=== PATIENT | male | born 1935 | race Caucasian/White ===

== ENCOUNTER 2020-07-13 13:25 | Emergency (ER) | payer MEDICARE, SELFPAY ==
[2020-07-13 13:33] VITALS: BP 158/72; PULSE 69; RESP 16; TEMP 36.3; O2SAT 94; BMI 27.0
--- NOTE | 2020-07-13 13:50 | CTR_ITS ---
PROCEDURE INFORMATION: Exam: CT Abdomen And Pelvis With Contrast Exam date and time: 07/13/2020 2:42 PM Age: 85 years old Clinical indication: Abdominal pain; Localized; Left lower quadrant (llq); Additional info: Left inguinal hernia, severe pain ? incarcerated TECHNIQUE: Imaging protocol: Computed tomography of the abdomen and pelvis with contrast. Radiation optimization: All CT scans at this facility use at least one of these dose optimization techniques: automated exposure control; mA and/or kV adjustment per patient size (includes targeted exams where dose is matched to clinical indication); or iterative reconstruction. Contrast material: OMNIPAQUE 300; Contrast volume: 95 ml; Contrast route: INTRAVENOUS (IV); COMPARISON: CT abdomen pelvis wo con [id number] 09/09/2016 11:06 AM RADIATION DOSE METRICS: Total DLP (mGy-cm): 1323.69 FINDINGS: Mediastinal space: Large hiatal hernia. Liver: There are multiple cystic lesions with benign features in the liver the larger of which measures 11 mm in the left hepatic lobe. Follow-up is not necessary. Gallbladder and bile ducts: Cholelithiasis. Pancreas: Normal. No ductal dilation. Spleen: Normal. No splenomegaly. Adrenal glands: Normal. No mass. Kidneys and ureters: Bilateral renal cysts have benign features. The larger is in the left kidney and measures 2.6 cm in the transverse dimension. There are several left renal calculi. The left renal pelvis is somewhat full appearing in relation to the right. Stomach and bowel: Colonic constipation is present. There is diverticulosis of the colon without evidence of diverticulitis. Appendix: A normal appendix is identified. Intraperitoneal space: Unremarkable. No free air. No significant fluid collection. Vasculature: There is an infrarenal abdominal aortic aneurysm measuring 2.6 x 2.6 cm in AP/transverse dimensions.Follow-up imaging in 5 years is recommended. There is eccentric plaque in the left common iliac artery with a short segment of severe stenosis measuring 6 mm in the craniocaudad dimension. 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 No evidence for rupture. Lymph nodes: Unremarkable. No enlarged lymph nodes. Urinary bladder: Urinary bladder wall thickening could be due to cystitis or lack of distention. Reproductive: Prostate gland is heterogeneous, enlarged, and indents the base of the bladder. Bones/joints: There are degenerative changes in the visualized spine. Soft tissues: Small fat containing left inguinal hernia. There is no extrusion of bowel. CT/CT abdomen pelvis w con* [id number] IMPRESSION: 1. There are several left renal calculi. The left renal pelvis is somewhat full appearing in relation to the right renal pelvis. 2. Urinary bladder wall thickening could be due to cystitis or lack of distention. 3. 3.Colonic constipation is present. 4. There is a small fat containing left inguinal hernia. There is no extrusion of bowel. 5. Large hiatal hernia. 6. Cholelithiasis. COMMENTS: Consistent with the [employer]'s Incidental Findings Committee white paper (J Am Germaine Radiol 2018): Any incidental renal lesion less than 1 cm or classified as too small to characterize, or any incidental cystic renal lesion characterized as simple-appearing, is likely benign. No follow-up imaging is recommended for these lesions per consensus recommendations based on imaging criteria. Radiation Dose CTDIVOL = (mGy): DLP = 1323.69 (mGy-cm)
--- NOTE | 2020-07-13 14:13 | ED_ITS ---
HPI - Male Genitourinary General: Chief complaint: Urogenital-Male Stated complaint: Severe L side groin pain Time Seen by Provider: 07/13/20 13:39 Source: patient Mode of arrival: ambulatory Limitations: no limitations History of Present Illness: HPI Narrative: Patient is an 85-year-old male who presents to the emergency department with left groin pain. Symptoms started yesterday and he said the pain was very severe. He describes the pain as 10/10 yesterday. Pain eventually resolved but returned today and is about a 5/10 currently. He does not have a history of hernia that he knows of, no history of nephrolithiasis. Pain is radiating from the groin to the suprapubic region. No nausea or vomiting. No abdominal distention. No constipation. Onset (ago): day(s) (1) Duration: constant Location: left inguinal region Radiation: abdomen Severity: severe Quality: burning Relieving factors: none Exacerbating factors: none Associated symptoms: Deny discharge, dysuria, fevers/chills, hematuria, nausea, rash, swelling, urinary incontinence, urinary retention, mass or vomiting Review of Systems General: Reports: 10 or more systems reviewed and unremarkable except in HPI and below GI: Denies: nausea or vomiting : Denies: dysuria, urinary incontinence or hematuria Physical Exam Const: COMMON NORMALS: no acute distress, average body habitus, patient oriented x3, no limitations, healthy appearing, alert and well nourished HENMT: COMMON NORMALS: normocephalic, atraumatic and moist oral mucous membranes HEAD & SCALP: normocephalic and atraumatic Neck/C-Spine: COMMON NORMALS: no meningeal signs and no JVD Resp: COMMON NORMALS: normal respiratory effort, No retractions, No use of accessory muscles, clear to auscultation bilaterally and percussion normal AUSCULTATION: clear to auscultation bilaterally PERCUSSION: percussion normal Cardio: COMMON NORMALS: no JVD, regular rate, regular rhythm, S1 normal heart sound present, S2 normal heart sound present, No gallops present (Cardio), No clicks present (Cardio), No murmurs present (Cardio), No rub (Cardio) and Peripheral pulses 2+ throughout RATE: regular rate RHYTHM: regular rhythm HEART SOUNDS: S1 normal heart sound present and S2 normal heart sound present PERIPHERAL PULSES: Peripheral pulses 2+ throughout GI: COMMON NORMALS: Normal to inspection, nondistended, normoactive bowel sounds present, Soft to palpation, non-tender, No hepatosplenomegaly present, no masses and no bruits PALPATION: Yes Soft to palpation, Yes Tenderness to palpation present (GI) (Markedly tender left inguinal hernia.), Yes No hepatosplenomegaly present and Yes Hernia present indirect inguinal Indirect inguinal hernia laterality: left : COMMON NORMALS: Yes no CVA tenderness BLADDER/KIDNEY EXAM: Yes no CVA tenderness Back/Pelvis: COMMON NORMALS: no CVA tenderness Extremity: COMMON NORMALS: normal to inspection, full ROM, capillary refill normal, no calf tenderness and no pedal edema Neuro: COMMON NORMALS: patient oriented x3 SENSORIUM/ORIENTATION: Yes alert MENINGEAL SIGNS: Yes no meningeal signs Skin: COMMON NORMALS: no rashes or lesions noted, no wounds, turgor normal, no jaundice, no petechiae and no mottling GENERAL SKIN EXAM: no rashes or lesions noted and turgor normal Course Reevaluation(s): Reevaluation #1: Discussed his lab and imaging findings with him as well as my conversation with Dr. Spears. We will discharge him home with a prescription for Augmentin, hydrocodone. He already has tamsulosin at home. He will follow-up with Dr. Spears. Patient voiced understanding and is in agreement with the plan. Time: 16:22 Consultations: Consultation #1: Discussed the patient with Dr. Spears, urologist. Since then no signs of pyelonephritis and no significant hydronephrosis. He should be managed with antibiotics and he will follow up with him in the office. Time: 15:40 Vital Signs: Vital signs: Vital Signs Temperature 97.4 F L 07/13/20 13:33 Pulse Rate 71 07/13/20 16:45 Respiratory Rate 15 07/13/20 16:45 Blood Pressure 147/74 07/13/20 16:45 Pulse Oximetry 90 07/13/20 16:45 MDM - Male MDM Narrative: Medical decision making narrative: 85-year-old male who presented with left groin pain. Examination in the ED was concerning for painful inguinal hernia but imaging shows the inguinal hernia is uncomplicated. He however has a urinary tract infection and left-sided urolithiasis. His pain therefore is most likely from the urolithiasis than the hernia. Also explains why the pain is waxing and waning. He was given a dose of intravenous ceftriaxone in the emergency department as well as intravenous morphine. He is discharged home with a prescription for hydrocodone and Augmentin. He has tamsulosin at home that he takes for his prostate. He will follow-up with the urologist outpatient as no signs of pyelonephritis clinically and on CT scan. He is advised to return for any concerns. Medical Records: Attestation: I reviewed the patient's medical records. Lab Data: Attestation: I reviewed the patient's lab results. Labs: Lab Results 07/13/20 07/13/20 07/13/20 Range/Units 14:04 14:13 14:13 WBC 13.6 H (4.0-10.0) 10^3/ uL RBC 5.36 H (4.1-5.3) 10^6/u L Hgb 16.1 (11.7-16.6) g/dL Hct 49.9 (42.0-52.0) % MCV 93.1 (80-94) fL MCH 30.0 (28.0-34.0) pg MCHC 32.3 (30.0-36.0) g/dL RDW 12.9 (12.1-15.1) % Plt Count 243 (130-400) 10^3/c mm MPV 10.9 H (7.4-10.4) fL Neut % (Auto) 65.0 % Lymph % (Auto) 27.3 % [place] % (Auto) 5.5 % Eos % (Auto) 1.6 % Baso % (Auto) 0.3 % Neut # (Auto) 8.84 H (1.8-7.7) 10^3/u L Lymph # (Auto) 3.7 (0.8-4.8) 10^3/u L [place] # (Auto) 0.8 (0.2-0.9) 10^3/u L Eos # (Auto) 0.2 (0.0-0.8) 10^3/u L Baso # (Auto) 0.0 (0.0-0.1) 10^3/u L Nucleated RBC % (a uto) 0 % Nucleated RBCs # 0.0 /100WBC Sodium 144 (136-145) mmol/L Potassium 4.2 (3.5-5.1) mmol/L Chloride 100 (98-107) mmol/L Carbon Dioxide 34 H (22-29) mmol/L Anion Gap 14.2 (5-19) BUN 15 (8-23) mg/dL Creatinine 0.8 (0.7-1.2) mg/dL GFR Calculation Not Reportable Glucose 115 (65-115) mg/dL Calculated Osmolal ity 300 H (285-295) mOsm/k g Calcium 9.1 (8.5-10.5) mg/dL Total Bilirubin 0.4 (0.15-1.2) mg/dL AST 15 (0-40) U/L ALT 10 (0-41) U/L Alkaline Phosphata se 69 (40-130) IU/L Total Protein 7.2 (6.6-8.7) g/dL Albumin 4.7 (3.5-5.2) g/dL Globulin 2.5 (1.3-4.6) g/dL Urine Color Yellow (Yellow) Urine Appearance Cloudy (CLEAR) Urine pH 5 (5-7) Ur Specific Gravit y 1.020 (1.005-1.030) Urine Protein Neg (Negative) Urine Glucose (UA) Norm (Normal) Urine Ketones Negative (Negative) Urine Blood Trace H (Negative) Urine Nitrate Negative (Negative) Urine Bilirubin Neg (Negative) Urine Urobilinogen 1 H (Negative) mg/dL Ur Leukocyte Jayashree ase 2+ H (Negative) Urine RBC 0-4 H (0-2) /hpf Urine WBC >100 H (0-5) /hpf Ur Squamous Epith Cells Rare (0-5) /hpf Amorphous Sediment Not Reportable Urine Bacteria Trace (NONE) /hpf Urine Mucus Trace /hpf Urine Sperm 1+ /hpf Imaging Data: CT Abd/Pel: Attestation: I personally reviewed and interpreted this imaging study as follows: Radiologist's impression: [address] [id number] Scan ReportSigned Patient: Jae Redd #: [id number]: [id number]#:[id number]/Sex: 85 / MADM Date: 07/13/20Loc: ERRoom/Bed:Attending Dr: Ordering Provider/Ordering MD: Sondra Dugan [place] [facility] [place] of Service: 07/13/20 Procedure(s): CT abdomen pelvis w con* [id number] Accession Number(s): [id number] Report Number: [id number] PROCEDURE INFORMATION: Exam: CT Abdomen And Pelvis With Contrast Exam date and time: 07/13/2020 2:42 PM Age: 85 years old Clinical indication: Abdominal pain; Localized; Left lower quadrant (llq); Additional info: Left inguinal hernia, severe pain ? incarcerated TECHNIQUE: Imaging protocol: Computed tomography of the abdomen and pelvis with contrast. Radiation optimization: All CT scans at this facility use at least one of these dose optimization techniques: automated exposure control; mA and/or kV adjustment per patient size (includes targeted exams where dose is matched to clinical indication); or iterative reconstruction. Contrast material: OMNIPAQUE 300; Contrast volume: 95 ml; Contrast route: INTRAVENOUS (IV); COMPARISON: CT abdomen pelvis wo con [id number] 09/09/2016 11:06 AM RADIATION DOSE METRICS: Total DLP (mGy-cm): 1323.69 FINDINGS: Mediastinal space: Large hiatal hernia. Liver: There are multiple cystic lesions with benign features in the liver the larger of which measures 11 mm in the left hepatic lobe. Follow-up is not necessary. Gallbladder and bile ducts: Cholelithiasis. Pancreas: Normal. No ductal dilation. Spleen: Normal. No splenomegaly. Adrenal glands: Normal. No mass. Kidneys and ureters: Bilateral renal cysts have benign features. The larger is in the left kidney and measures 2.6 cm in the transverse dimension. There are several left renal calculi. The left renal pelvis is somewhat full appearing in relation to the right. Stomach and bowel: Colonic constipation is present. There is diverticulosis of the colon without evidence of diverticulitis. Appendix: A normal appendix is identified. Intraperitoneal space: Unremarkable. No free air. No significant fluid collection. Vasculature: There is an infrarenal abdominal aortic aneurysm measuring 2.6 x 2.6 cm in AP/transverse dimensions.Follow-up imaging in 5 years is recommended. There is eccentric plaque in the left common iliac artery with a short segment of severe stenosis measuring 6 mm in the craniocaudad dimension. 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 No evidence for rupture. Lymph nodes: Unremarkable. No enlarged lymph nodes. Urinary bladder: Urinary bladder wall thickening could be due to cystitis or lack of distention. Reproductive: Prostate gland is heterogeneous, enlarged, and indents the base of the bladder. Bones/joints: There are degenerative changes in the visualized spine. Soft tissues: Small fat containing left inguinal hernia. There is no extrusion of bowel. CT/CT abdomen pelvis w con* [id number] IMPRESSION: 1. There are several left renal calculi. The left renal pelvis is somewhat full appearing in relation to the right renal pelvis. 2. Urinary bladder wall thickening could be due to cystitis or lack of distention. 3. 3.Colonic constipation is present. 4. There is a small fat containing left inguinal hernia. There is no extrusion of bowel. 5. Large hiatal hernia. 6. Cholelithiasis. COMMENTS: Consistent with the [employer]'s Incidental Findings Committee white paper (J Am Germaine Radiol 2018): Any incidental renal lesion less than 1 cm or classified as too small to characterize, or any incidental cystic renal lesion characterized as simple-appearing, is likely benign. No follow-up imaging is recommended for these lesions per consensus recommendations based on imaging criteria. Radiation Dose CTDIVOL = (mGy): DLP = 1323.69 (mGy-cm) Dictated By:Jihan George MDSigned By:Jihan George MDSigned Date/Time:07/13/20 1539DD/ 36 Discharge Plan Discharge Patient Disposition: Home Clinical Impression: Left nephrolithiasis, Left inguinal hernia, Hiatal hernia Urinary tract infection Qualifiers: Urinary tract infection type: acute cystitis Hematuria presence: without hematuria Qualified Code(s): N30.00 - Acute cystitis without hematuria Condition: Stable Prescriptions: New Augmentin 500-125 mg tablet 1 tab PO BID Qty: 14 RF: 0 hydrocodone-acetaminophen 5-325 mg tablet 1 tab PO Q8H PRN (Reason: kidney stones) Qty: 21 RF: 0 Continued aspirin 81 mg Tablet,Delayed Release (Dr/Ec) 81 mg PO PRN RF: 0 Flomax 0.4 mg Capsule 0.4 mg PO QAM RF: 0 Spiriva with HandiHaler 18 mcg Capsule, W/Inhalation Device 1 cap INHALATION DAILY RF: 0 Crestor 1 tab PO QAM RF: 0 Lasix 1 tab PO QAM RF: 0 amlodipine 1 tab PO QAM RF: 0 benazepril 1 tab PO QAM RF: 0 metformin 1 tab PO QAM RF: 0 potassium chloride 1 tab PO QAM RF: 0 Discharge Orders: Discharge ED (Routine); Ordered 07/13/20 Ordered By: Sondra Dugan Referrals: Chelsea Joe MD [Primary Care Provider] - 1-3 days Discharge Diet: Usual diet Discharge Activity: Increase activity as tolerated Patient Instructions: Kidney Stones (ED), Urinary Tract Infection in Men (ED), Inguinal Hernia (ED), How to Strain Your Urine (ED), Opioid Safety Activity Restrictions/Additional Instructions: Return for any new or worsening symptoms. Follow-up with your primary care provider within 3 days. You'll be contacted to schedule an appointment with the urologist soon. Take the antibiotic as prescribed and the pain medicine as needed. Continue your Flomax. Coding Level of Care Code ED Cold Water Machine Operator for Chg Fwd Exam Comprehensive
[2020-07-13 14:16] LABS: Bilirubin Urine Neg (Negative); Blood Urine Trace (Negative); Glucose Urine UA Norm (Normal); Ketones Urine Negative (Negative); Nitrate Urine Negative (Negative); Protein Urine Neg (Negative); Urine Appearance Cloudy (CLEAR); Urine Color Yellow (Yellow); pH Urine 5 (5-7)
[2020-07-13 14:17] LABS: Add Urine Microscopic? YES; Leukocyte Esterase Urine 2+ (Negative); Urobilinogen Urine 1 mg/dL (Negative)
[2020-07-13 14:20] LABS: Basophils % 0.3 %; Eosinophils # 0.2 10^3/uL (0.0-0.8); Eosinophils % 1.6 %; Hematocrit 49.9 % (42.0-52.0); Hemoglobin 16.1 g/dL (11.7-16.6); Lymphocytes # 3.7 10^3/uL (0.8-4.8); Lymphocytes % 27.3 %; Mean Corpuscular HGB Conc 32.3 g/dL (30.0-36.0); Mean Corpuscular Volume 93.1 fL (80-94); Mean Platelet Volume 10.9 fL (7.4-10.4); Monocytes # 0.8 10^3/uL (0.2-0.9); Monocytes % 5.5 %; Neutrophils # 8.84 10^3/uL (1.8-7.7); Nucleated Red Blood Cells % 0 %; Platelet Count 243 10^3/cmm (130-400); Red Blood Count 5.36 10^6/uL (4.1-5.3); Red Cell Distribution Width 12.9 % (12.1-15.1); White Blood Count 13.6 10^3/uL (4.0-10.0)
[2020-07-13 14:21] LABS: RBC Urine 0-4 /hpf (0-2); WBC Urine >100 /hpf (0-5)
[2020-07-13 14:22] LABS: Bacteria Urine TRACE /hpf; Mucus Urine TRACE /hpf; Sperm Urine 1+ /hpf; Squamous Epithelial Cell Urine RARE /hpf (0-5)
[2020-07-13 14:23] LABS: Add Urine Culture? Yes
[2020-07-13 14:37] LABS: Alanine Aminotransferase 10 U/L (0-41); Albumin Level 4.7 g/dL (3.5-5.2); Alkaline Phosphatase 69 IU/L (40-130); Aspartate Amino Transferase 15 U/L (0-40); Blood Urea Nitrogen 15 mg/dL (8-23); Calcium 9.1 mg/dL (8.5-10.5); Carbon Dioxide 34 mmol/L (22-29); Chloride 100 mmol/L (98-107); Globulin 2.5 g/dL (1.3-4.6); Glucose 115 mg/dL (65-115); Osmolality Calculated 300 mOsm/kg (285-295); Sodium 144 mmol/L (136-145); Total Bilirubin 0.4 mg/dL (0.15-1.2); Total Protein 7.2 g/dL (6.6-8.7)
[2020-07-13 14:46] LABS: Anion Gap 14.2 (5-19); Potassium 4.2 mmol/L (3.5-5.1)
--- NOTE | 2020-07-13 14:56 | PC.PHAR ---
pt states he takes care of his own medicaitons-pt states he takes the medications entered but is unsure of the mg-pt states [facility] state [facility] dont mail medication to the pt-called [facility] they are closed-no medications pull up on ext med history
[2020-07-13] MEDS: iohexol 300 mg/mL 100 mL Btl IV (15:02)
[2020-07-13] MEDS: cefTRIAXone 1,000 MG in sodium chloride 0.9% (plus) 50 ML 100 MG IV (15:10)
[2020-07-13] MEDS: ondansetron 2 mg/ML SDV 2 mL 4 MG IVP (16:33)
[2020-07-13] MEDS: morphine 4 mg/mL SDV 1 mL IVP (16:33)
[2020-07-13 16:45] VITALS: BP 147/74; PULSE 71; RESP 15; O2SAT 90
--- NOTE | 2020-07-16 10:51 | DCPLANNER ---
manager talent had message to schedule a follow up appointment for patient with Dr. Spears. manager talent called the office of Dr. Spears, spoke with Sadaf, gave clinic patients information. manager talent was told that patients information would be printed and reviewed. Clinic will call patient with appointment information.
--- NOTE | 2020-07-17 12:55 | DCPLANNER ---
Patient has a follow up appointment scheduled for , July 25, 2020 at 3:[address] Spears. Clinic will call patient with appointment information.
--- NOTE | 2020-09-10 07:45 | DCPLANNER ---
Patient had a follow up appointment scheduled for 07.25.[address] Spears - patient did attend appointment.
== END 2020-07-13 16:46 | disposition home or self-care (01) ==
PROVIDERS: Emergency Provider Family Medicine; PCP Family Medicine
DX: K40.90 Unilateral inguinal hernia, without obstruction or gangrene, not specified as recurrent (principal); N30.00 Acute cystitis without hematuria; N20.0 Calculus of kidney; K44.9 Diaphragmatic hernia without obstruction or gangrene; Z79.82 Long term (current) use of aspirin
CPT/HCPCS: 74177; 80053; 81001; 85025; 87077; 87086; 87186; 96365; 96375; 99284; J0696; J2270; J2405; Q9967

== ENCOUNTER 2020-07-25 14:04 | Outpatient (CLI) | payer MEDICARE, SELFPAY ==
--- NOTE | 2020-07-25 13:30 | XR_ITS ---
WS: [id number] KUB, AP view, 07/25/2020 Clinical Data: UROLITHIASIS Comparison: KUB, 08/27/2014. Findings: There are probably left renal calcifications but details obscured by overlying fecal material and col on gas. The right kidney is also obscured by fecal material. There is air in the small bowel and colo n. No obstruction is seen. No calcifications are seen in the true pelvis. XR/XR KUB [id number] Impression: 1. Left renal calcifications obscured by fecal material and colon gas. 2. Large amount of fecal material throughout the colon.
== END 2020-07-25 14:05 | disposition home or self-care (01) ==
LOC: RAD 14:09
PROVIDERS: PCP Family Medicine; Visit Provider Urology
DX: N20.0 Calculus of kidney
CPT/HCPCS: 74018; 81003

== ENCOUNTER → 2020-08-07 09:21 | Outpatient (BNVA) | payer MEDICARE, SELFPAY | PROVIDERS: PCP Family Medicine; Visit Provider Surgery | DX: R10.32 Left lower quadrant pain (principal); Z20.822 Contact with and (suspected) exposure to COVID-19 | CPT/HCPCS: 87635 ==

== ENCOUNTER 2020-08-14 07:08 | Day surgery (SDC) | payer MEDICARE, SELFPAY ==
[2020-08-13 15:02] VITALS: BMI 24.6
[2020-08-14] VITALS (7 sets, daily range): BP systolic 116–157; BP diastolic 57–71; PULSE 59–94; RESP 16–21; TEMP 36.1–36.2; O2SAT 93–97
[2020-08-14] MEDS: sodium chloride 0.9% 1,000 ML 30 ML IV (07:35)
--- NOTE | 2020-08-14 07:40 | W.PM.OPSUD ---
Surgery/Procedure H&P Update DATE OF PROCEDURE: August 14, 2020 DATE H&P PERFORMED: 08/06/20 H&P UPDATE INFORMATION: I have reviewed H&P completed within last 30 days, I have examined patient prior to procedure and No changes to prior documentation PREOP DIAGNOSIS: Left inguinal hernia PLANNED PROCEDURE: Operation Date: 08/14/20 09:00 Proposed Procedures p Laparoscopic poss open Inguinal Hernia Repair w/possible Mesh [id number] k40.9(Not Applicable) - Scott Blake MD
[2020-08-14 07:59] LABS: Glucose Point of Care 97 mg/dL (70-110)
--- NOTE | 2020-08-14 08:19 | ANES.PREANE2 ---
Pre-Anesthetic Assessment Pre-Anesthetic Assessment: Height/Weight: Height 1.69 m Weight 70.307 kg Temp Pulse Resp BP Pulse Ox 97 F L 59 L 18 138/67 94 08/14/20 07:22 08/14/20 07:22 08/14/20 07:22 08/14/20 07:22 08/14/20 07:22 Preop Diagnosis: Left inguinal hernia Proposed Procedure: Operation Date: 08/14/20 09:00 Proposed Procedures p Laparoscopic poss open Inguinal Hernia Repair w/possible Mesh [id number] k40.9(Not Applicable) - Scott Blake MD Was Beta Elida taken within 24 hours: N/A Was Clonidine taken within 24 hours: N/A Last intake: Intake Last Liquid Date 08/13/20 Last Liquid Time 22:00 Last Solid Date 08/13/20 Last Solid Time 18:00 Social: Social History: Tobacco (quit) and No alcohol Exam: Pre-Anes Outpt Exam: alert, oriented x 3 and regular rate & rhythm Airway: Submandibular: WNL Cervical ROM: WNL MP: 2 Dentition: False Pulmonary: Pulmonary: COPD CV/HEM: CV/HEM: CAD (stents) and HTN Metabolic: Metabolic: DM and Hyperlipidemia Anesthetic Plan: ASA status: 3 Anesthesia: General Risk of > 500 ml blood loss (7ml/kg in children): No PFSH Anesthesia PFSH: Medical History (Updated 08/06/20 @ 11:08 by Scott Blake MD) Diabetes HTN (hypertension) Hypercholesterolemia Myocardial infarct Urolithiasis Surgical History H/O esophagogastroduodenoscopy Status post colonoscopy Family History Father , PROSTATE CANCER Cancer Mother Lung disease Social History Smoking and tobacco status: never smoked Alcohol intake: current Alcohol intake frequency: holidays/special occasions only Marital status: Current occupational status: retired Data Anesthesia Other Labs: Laboratory Results - last 48 hr 08/14/20 07:45 POC Glucose 97 Cardiac Studies: No Data to Display
--- NOTE | 2020-08-14 10:38 | SUR.PHASEI ---
PT TO RECOVERY AWAKES TO VOICE, GOOD RESP NOTED PT SCROTAL SUPPORT AND FLUFFS IN PLACE , SCROTUM IS LARGE POINTED OUT IN BEDSIDE HANDOFF FROM OR NURSE, DRESSING D/I BILAT SCDS ON .
--- NOTE | 2020-08-14 10:45 | SUR.PHASEI ---
PT AWAKE ALERT TAKING ICE CHIPS ,PT DENIES PAIN AND NAUSEA, VSS DRESSING D/I WILL GIVE REPORT TO OPS
[2020-08-14] MEDS: HYDROcodone-acetaminophen 5-325 mg Tablet 1 TAB PO (11:26)
--- NOTE | 2020-08-14 14:35 | ANE.PACU2 ---
Inpatient post-anesthesia follow up: Airway intact: Yes Vital signs: Temperature 97.2 F Pulse Rate 68 Respiratory Rate 18 Blood Pressure 116/62 Pulse Oximetry 95 Oxygen Delivery Me thod Room Air Oxygen Flow Rate 8 Fraction of Inspir ed Oxygen Hydration adequate: Yes Nausea and vomiting: No Pain level: 2 Mental status: Baseline
--- NOTE | 2020-08-14 14:52 | PM.OP ---
Operative Report Date of procedure: August 14, 2020 Pre-op Diagnosis: Symptomatic reducible left inguinal hernia Post-op Diagnosis: Indirect reducible left inguinal hernia Lipoma of the spermatic cord Procedure Done: Laparoscopic total extraperitoneal repair of indirect left inguinal hernia with Surgimax 3D mesh measuring 16 x 10 cm Excision of lipoma of the spermatic cord Pathology: none sent Surgeon: Scott Blake Anesthesia: General Condition: stable Disposition: PACU Procedure: The patient was taken to the operating room. After IV antibiotic was administered, the abdomen was prepped and draped in a sterile manner. Using a 15 blade, a 1.0 cm transverse incision was made infraumbilically on the left side. Subcutaneous tissue was divided using electrocautery and the anterior rectus sheath divided using an 11 blade. The rectus muscle was retracted laterally and the extraperitoneal space identified. A 11 mm port was placed and 12 mm of pneumoperitoneum was created. A 10 mm 30? scope was introduced and the retrorectus space was opened using the camera up to the pubic symphysis and 5 mm ports were placed in the midline, one 2-fingerbreadths above the pubic symphysis and the other midway between these two ports under direct visualization. Blunt dissection was carried out to open up the tissue in the midline and to the pubic symphysis, which was identified. The dissection was then carried laterally where the iliopubic tract was identified. There was no femoral, obturator or direct hernia noted. The inferior epigastric artery was identified and dissection was carried posterior to it and laterally, the space was opened up to the level of the umbilicus superior to the anterior superior iliac spine. I then proceeded to dissect out the spermatic cord and the indirect hernial sac was reduced . There is also a lipoma of the spermatic cord which was excised and reduced into the preperitoneal space. 16 x 10cm Surgimax mesh was rolled and introduced through the 10 mm port and then rolled laterally and apposed well against the abdominal wall to cover the myopectineal orifice completely. 10 Cc of 0.5% Marcaine was infiltrated into the preperitoneal space. The extraperitoneal space was desufflated under direct visualization to ensure no slippage of hernial sac under the mesh. All ports were removed, the anterior rectus fascia at the infraumbilical port closed using figure of eight 0 Vicryl sutures, subcutaneous tissue approximated using 3-0 Vicryl sutures and skin at all three port sites were closed using running subcuticular 4-0 Monocryl sutures and Dermabond. 10 mL of 0.5% Marcaine was infiltrated at the port sites. The patient was stable throughout the procedure.
== END 2020-08-14 11:44 | disposition home or self-care (01) ==
PROVIDERS: PCP Family Medicine; Visit Provider Surgery
PROC: (CPT 49650; principal; 2020-08-14 09:00)
DX: K40.90 Unilateral inguinal hernia, without obstruction or gangrene, not specified as recurrent (principal); D17.6 Benign lipomatous neoplasm of spermatic cord; Z87.891 Personal history of nicotine dependence; J44.9 Chronic obstructive pulmonary disease, unspecified; I25.10 Atherosclerotic heart disease of native coronary artery without angina pectoris; Z95.5 Presence of coronary angioplasty implant and graft; I10 Essential (primary) hypertension; E11.9 Type 2 diabetes mellitus without complications; E78.5 Hyperlipidemia, unspecified; E78.00 Pure hypercholesterolemia, unspecified; I25.2 Old myocardial infarction; Z79.82 Long term (current) use of aspirin; Z79.84 Long term (current) use of oral hypoglycemic drugs
CPT/HCPCS: 49650; 36416; 82962; C1781; J0690; J2405; J2704; J2710; J3010; J3490; J7030

== ENCOUNTER 2020-09-11 20:26 | Emergency (ER) | payer MEDICARE, SELFPAY ==
--- NOTE | 2020-09-11 20:40 | XRR_ITS ---
PROCEDURE INFORMATION: Exam: XR Chest Exam date and time: 09/11/2020 8:40 PM Age: 85 years old Clinical indication: Cough and shortness of breath TECHNIQUE: Imaging protocol: XR of the chest. Views: 1 view. COMPARISON: CR Chest 1 [place] [id number] 09/09/2016 10:02 AM FINDINGS: Lungs: There are multiple calcified pulmonary nodules consistent with prior granulomatous disease. Hazy right basilar opacity which could be secondary to atelectasis or pneumonia. Pleural spaces: Unremarkable. No pleural effusion. No pneumothorax. Heart/Mediastinum: Unremarkable. No cardiomegaly. Bones/joints: Unremarkable. XR/XR chest 1V portable [id number] IMPRESSION: Hazy right basilar opacity which could be secondary to atelectasis or pneumonia.
[2020-09-11 21:23] VITALS: BP 126/69; PULSE 81; RESP 18; TEMP 36.8; O2SAT 90; BMI 24.5
--- NOTE | 2020-09-12 01:15 | W.ED.GENADLT ---
HPI - General Adult General: Chief complaint: General Medical Stated complaint: FEVER, COUGH, WEAKNESS Time Seen by Provider: 09/12/20 00:45 Source: patient Mode of arrival: ambulatory Limitations: no limitations History of Present Illness: HPI narrative: 85-year-old male who is here with caregiver has been having increased weakness along with cough dyspnea low-grade fevers and chills over the last 5 to 7 days. He has been slightly confused as well per family. Patient is able answer my questions here and is in no severe distress but is hypoxic. Patient is 86% on room air. Patient did not receive a Covid vaccine. Denies any chest pain. Associated symptoms: Reports dyspnea; Deny chest pain, headache(s), nausea, rash or vomiting Review of Systems Const: Reports: fever(s) and chills; Denies: body aches or change in appetite Eyes: Denies: blurry vision or eye discomfort ENMT: Denies: throat pain or dental pain Card: Denies: chest pain Resp: Reports: dyspnea and non-productive cough GI: Denies: abdominal pain, nausea, vomiting or diarrhea : Denies: dysuria Musc: Denies: neck pain or back pain Skin/Breast: Denies: rash Neuro: Denies: headache(s) Psych: Denies: depression Faustino/Lymph: Denies: easy bruising All/Imm: Denies: urticaria PFSH ED PFSH: Medical History Diabetes HTN (hypertension) Hypercholesterolemia Myocardial infarct Urolithiasis Surgical History H/O esophagogastroduodenoscopy Status post colonoscopy Status post left inguinal hernia repair (08/14/20) Family History Father , PROSTATE CANCER Cancer Mother Lung disease Social History Alcohol intake: current Alcohol intake frequency: holidays/special occasions only Marital status: Current occupational status: retired Physical Exam Const: COMMON NORMALS: no acute distress, patient oriented x3 and healthy appearing HENMT: COMMON NORMALS: normocephalic and atraumatic HEAD & SCALP: normocephalic and atraumatic Eye: COMMON NORMALS: Equal, round and reactive pupils present and EOMs intact bilaterally PUPIL: Yes Equal, round and reactive pupils present Neck/C-Spine: COMMON NORMALS: full ROM and supple Chest: COMMONS NORMALS: normal inspection of the chest and normal palpation of entire chest wall Resp: COMMON NORMALS: normal respiratory effort, No retractions, No use of accessory muscles and clear to auscultation bilaterally AUSCULTATION: clear to auscultation bilaterally Cardio: COMMON NORMALS: regular rate, regular rhythm and No murmurs present (Cardio) RATE: regular rate RHYTHM: regular rhythm GI: COMMON NORMALS: Normal to inspection, nondistended, normoactive bowel sounds present, Soft to palpation, non-tender and no masses PALPATION: Yes Soft to palpation Extremity: COMMON NORMALS: normal to inspection and full ROM Neuro: COMMON NORMALS: patient oriented x3, moves all extremities and no focal motor deficits Psych: COMMON NORMALS: mental status grossly normal, Normal thought process present and cooperative THOUGHT PROCESS: Normal thought process present Skin: COMMON NORMALS: no rashes or lesions noted and no wounds GENERAL SKIN EXAM: no rashes or lesions noted Course Vital Signs: Vital signs: Vital Signs Temperature 98.2 F 09/11/20 21:23 Pulse Rate 82 09/12/20 02:51 Respiratory Rate 18 09/12/20 02:51 Blood Pressure 127/74 09/12/20 02:51 Pulse Oximetry 95 09/12/20 02:51 MDM - General Adult MDM Narrative: Medical decision making narrative: Patient presents here with Covid pneumonia likely causing his symptoms. He is doing well here on 4 L. I spoke to patient's caregiver and they would like to trial going home first. We will place him on steroids albuterol inhaler and have him set up for home oxygen at 4 L. Informed him to monitor his oxygen level and if he worsens or feels worse to return to the ER. They understand agree to plan. Lab Data: Labs: Lab Results 09/12/20 09/12/20 09/12/20 Range/Units 01:45 01:45 01:50 WBC 6.8 (4.0-10.0) 10^3/ uL RBC 5.25 (4.1-5.3) 10^6/u L Hgb 15.7 (11.7-16.6) g/dL Hct 49.3 (42.0-52.0) % MCV 93.9 (80-94) fL MCH 29.9 (28.0-34.0) pg MCHC 31.8 (30.0-36.0) g/dL RDW 13.3 (12.1-15.1) % Plt Count 120 L (130-400) 10^3/c mm MPV 12.1 H (7.4-10.4) fL Neut % (Auto) 32.5 % Lymph % (Auto) 60.8 % [place] % (Auto) 6.2 % Eos % (Auto) 0.0 % Baso % (Auto) 0.1 % Neut # (Auto) 2.19 (1.8-7.7) 10^3/u L Lymph # (Auto) 4.1 (0.8-4.8) 10^3/u L [place] # (Auto) 0.4 (0.2-0.9) 10^3/u L Eos # (Auto) 0.0 (0.0-0.8) 10^3/u L Baso # (Auto) 0.0 (0.0-0.1) 10^3/u L Nucleated RBC % (a uto) 0 % Nucleated RBCs # 0.0 /100WBC Sodium 139 (136-145) mmol/L Potassium 3.8 (3.5-5.1) mmol/L Chloride 98 (98-107) mmol/L Carbon Dioxide 29 (22-29) mmol/L Anion Gap 15.8 (5-19) BUN 29 H (8-23) mg/dL Creatinine 0.9 (0.7-1.2) mg/dL GFR Calculation Not Reportable Glucose 108 (65-115) mg/dL Calculated Osmolal ity 294 (285-295) mOsm/k g Calcium 8.0 L (8.5-10.5) mg/dL Total Bilirubin 0.6 (0.15-1.2) mg/dL AST 42 H (0-40) U/L ALT 22 (0-41) U/L Alkaline Phosphata se 59 (40-130) IU/L Total Protein 6.3 L (6.6-8.7) g/dL Albumin 3.6 (3.5-5.2) g/dL Globulin 2.7 (1.3-4.6) g/dL SARS-CoV-2 Ag (Rap id) Positive H (Negative) Imaging Data^: CXR: Attestation: I personally reviewed and interpreted this imaging study as follows: My impression: Patchy infiltrates consistent with Covid Discharge Plan Discharge Patient Disposition: Home Clinical Impression: COVID-19 Condition: Stable Prescriptions: New Medrol (Arnoldo) 4 mg tablets,dose pack See Rx Instructions .ROUTE .COMPLEX Qty: 21 RF: 0 No Action rosuvastatin 10 mg tablet 10 mg PO DAILY RF: 0 fexofenadine [Rashmi Allergy] 180 mg tablet 180 mg PO DAILY Qty: 30 RF: 0 amlodipine 10 mg tablet 10 mg PO DAILY Qty: 90 RF: 2 Flomax 0.4 mg capsule 0.4 mg PO QAM Qty: 90 RF: 1 benazepril 20 mg tablet 20 mg PO DAILY Qty: 90 RF: 1 metformin 500 mg tablet 500 mg PO DAILY Qty: 90 RF: 1 furosemide [Lasix] 40 mg tablet 40 mg PO DAILY Qty: 90 RF: 1 Spiriva with HandiHaler 18 mcg capsule, w/inhalation device 1 cap INHALATION DAILY Qty: 90 RF: 1 potassium chloride 10 mEq capsule, extended release 10 meq PO DAILY Qty: 90 RF: 1 aspirin 81 mg Tablet,Delayed Release (Dr/Ec) 81 mg PO PRN RF: 0 Zofran 4 mg tablet 4 mg PO Q6H PRN (Reason: nausea and vomiting) Qty: 20 RF: 0 Colace 100 mg capsule 100 mg PO BID Qty: 30 RF: 0 hydrocodone-acetaminophen 5-325 mg tablet 1 tab PO Q6H PRN (Reason: pain) Qty: 20 RF: 0 Discharge Orders: Discharge ED (Routine); Ordered 09/12/20 Ordered By: Marino Stewart Other Ambulatory Orders: DME: Oxygen (Order) Location: None Selected Ordered By: Marino Stewart Referrals: Chelsea Joe MD [Primary Care Provider] - 1-3 days Discharge Diet: Advance as tolerated Discharge Activity: Resume usual activity Patient Instructions: Viral Syndrome (ED) Coding Level of Care Code ED Day Treatment Clinician/Art Therapist for g Fwd Exam Comprehensive
[2020-09-12] MEDS: albuterol 8 gm MDI 2 PUFF INHALATION (01:29)
[2020-09-12 01:30] VITALS: PULSE 78; RESP 20; O2SAT 93
[2020-09-12 01:33] VITALS: PULSE 80
[2020-09-12] MEDS: sodium chloride 0.9% 1,000 ML 999 ML IV (01:46)
[2020-09-12 01:56] LABS: Basophils % 0.1 %; Hematocrit 49.3 % (42.0-52.0); Hemoglobin 15.7 g/dL (11.7-16.6); Lymphocytes # 4.1 10^3/uL (0.8-4.8); Lymphocytes % 60.8 %; Mean Corpuscular HGB Conc 31.8 g/dL (30.0-36.0); Mean Corpuscular Hemoglobin 29.9 pg (28.0-34.0); Mean Corpuscular Volume 93.9 fL (80-94); Mean Platelet Volume 12.1 fL (7.4-10.4); Monocytes # 0.4 10^3/uL (0.2-0.9); Monocytes % 6.2 %; Neutrophils # 2.19 10^3/uL (1.8-7.7); Neutrophils % 32.5 %; Nucleated Red Blood Cells % 0 %; Platelet Count 120 10^3/cmm (130-400); Red Blood Count 5.25 10^6/uL (4.1-5.3); Red Cell Distribution Width 13.3 % (12.1-15.1); White Blood Count 6.8 10^3/uL (4.0-10.0)
[2020-09-12 02:18] LABS: Alanine Aminotransferase 22 U/L (0-41); Albumin Level 3.6 g/dL (3.5-5.2); Alkaline Phosphatase 59 IU/L (40-130); Aspartate Amino Transferase 42 U/L (0-40); Blood Urea Nitrogen 29 mg/dL (8-23); Carbon Dioxide 29 mmol/L (22-29); Chloride 98 mmol/L (98-107); Globulin 2.7 g/dL (1.3-4.6); Glucose 108 mg/dL (65-115); Osmolality Calculated 294 mOsm/kg (285-295); Sodium 139 mmol/L (136-145); Total Bilirubin 0.6 mg/dL (0.15-1.2); Total Protein 6.3 g/dL (6.6-8.7)
[2020-09-12 02:21] LABS: Anion Gap 15.8 (5-19); Potassium 3.8 mmol/L (3.5-5.1)
[2020-09-12 02:30] LABS: SARS Covid-2 Antigen Positive (Negative)
[2020-09-12 02:51] VITALS: BP 127/74; PULSE 82; RESP 18; O2SAT 95
[2020-09-12 04:02] VITALS: BP 128/78; PULSE 70; RESP 16; O2SAT 93
== END 2020-09-12 04:04 | disposition home or self-care (01) ==
PROVIDERS: Emergency Provider Emergency Medicine; PCP Family Medicine
DX: U07.1 COVID-19 (principal); E11.9 Type 2 diabetes mellitus without complications; I10 Essential (primary) hypertension; E78.00 Pure hypercholesterolemia, unspecified; I25.2 Old myocardial infarction; Z79.84 Long term (current) use of oral hypoglycemic drugs
CPT/HCPCS: 71045; 80053; 85025; 87426; 94640; 96360; 99284; J3535; J7030

== ENCOUNTER 2020-10-03 15:51 | Emergency (ER) | payer MEDICARE, SELFPAY ==
[2020-10-03 16:13] VITALS: BP 119/78; PULSE 91; RESP 16; TEMP 36.7; O2SAT 92; BMI 23.0
--- NOTE | 2020-10-03 16:22 | W.ED.AMS ---
HPI - Altered Mental Status General: Chief Complaint: Altered Mental Status Stated Complaint: confusion, family altercation Time Seen by Provider: 10/03/20 15:58 History of Present Illness: HPI narrative: This patient is an 85-year-old male who presents to the emergency department complaining of confusion. Patient has been seen in the local [facility] for evaluation due to memory loss and confusion at times. Negative evaluation there was discharged home they apparently wandered away from home. Patient believes that he is in [place] and then just drove home from [place] in the past 30 minutes. Patient states he is from [place] and has family in [facility] about 300 miles in the immediate and 30 minutes. Patient unaware that he is in [place] until he was advised that he is in [place] then asked again about [place] and the patient states that he was in [place] and he just drives real fast. Patient appears to be appropriate otherwise other than the memory issues. Will do medical evaluation treat as needed MD complaint: altered mental status and confusion Severity: moderate Associated symptoms: Reports visual hallucinations; Deny depression Review of Systems General: Reports: 10 or more systems reviewed and unremarkable except in HPI and below Const: Denies: fever(s), chills, body aches or fatigue Eyes: Denies: change in vision or blurry vision ENMT: Denies: throat pain, hoarseness or mouth pain Card: Denies: chest pain, palpitations, irregular heart rhythm, edema, swelling of feet/ankles or lightheadedness Resp: Denies: dyspnea, productive cough, non-productive cough, wheezing or pain on inspiration GI: Denies: abdominal pain, nausea or vomiting : Denies: flank pain, dysuria, urinary frequency, urinary urgency or urinary hesitancy Musc: Denies: neck pain, back pain, extremity pain, extremity swelling, joint pain, joint swelling, joint redness, joint warmth or limited range of motion Skin/Breast: Denies: rash, pruritus, erythema or skin tenderness Neuro: Denies: headache(s), numbness in extremities or weakness in extremities Psych: Reports: memory loss and visual hallucinations; Denies: anxiety or depression PFS ED PFSH: Medical History Diabetes HTN (hypertension) Hypercholesterolemia Myocardial infarct Urolithiasis Surgical History H/O esophagogastroduodenoscopy Status post colonoscopy Status post left inguinal hernia repair (08/14/20) Family History Father , PROSTATE CANCER Cancer Mother Lung disease Social History Smoking and tobacco status: never smoked Alcohol intake: current Alcohol intake frequency: holidays/special occasions only Marital status: Current occupational status: retired Physical Exam Const: COMMON NORMALS: no acute distress, average body habitus, patient oriented x3, no limitations, healthy appearing, alert and well nourished HENMT: COMMON NORMALS: normocephalic, atraumatic, hearing grossly normal bilaterally, external ears normal, EAC's normal, TM's normal bilaterally, Normal external nose present, Normal nasal mucous membranes and turbinates present, moist oral mucous membranes, oropharynx normal, dentition normal and gingiva normal HEAD & SCALP: normocephalic and atraumatic NOSE: Normal external nose present and Normal nasal mucous membranes and turbinates present EXTERNAL EAR: Yes external ears normal EXTERNAL AUDITORY CANAL: EAC's normal TYMPANIC MEMBRANE: TM's normal bilaterally Neck/C-Spine: COMMON NORMALS: full ROM, no lymphadenopathy, supple, no meningeal signs, no JVD, Thyroid normal and No carotid bruits THYROID: Thyroid normal Chest: COMMONS NORMALS: normal inspection of the chest, normal palpation of entire chest wall, normal inspection of the breasts and normal palpation of the breasts Resp: COMMON NORMALS: normal respiratory effort, No retractions, No use of accessory muscles, clear to auscultation bilaterally and percussion normal AUSCULTATION: clear to auscultation bilaterally PERCUSSION: percussion normal Cardio: COMMON NORMALS: no JVD, regular rate, regular rhythm, S1 normal heart sound present, S2 normal heart sound present, No gallops present (Cardio), No clicks present (Cardio), No murmurs present (Cardio), No rub (Cardio) and Peripheral pulses 2+ throughout RATE: regular rate RHYTHM: regular rhythm HEART SOUNDS: S1 normal heart sound present and S2 normal heart sound present PERIPHERAL PULSES: Peripheral pulses 2+ throughout GI: COMMON NORMALS: Normal to inspection, nondistended, normoactive bowel sounds present, Soft to palpation, non-tender, No hepatosplenomegaly present, no masses and no bruits PALPATION: Yes Soft to palpation and Yes No hepatosplenomegaly present : COMMON NORMALS: Yes no CVA tenderness BLADDER/KIDNEY EXAM: Yes no CVA tenderness Back/Pelvis: COMMON NORMALS: no CVA tenderness, thoracic and lumbar spine normal to inspection, no thoracic nor lumbar tenderness, thoraco-lumbar ROM normal and straight leg raise negative bilaterally Extremity: COMMON NORMALS: normal to inspection, full ROM, capillary refill normal, no joint enlargement, no clubbing, cyanosis or edema, no calf tenderness and no pedal edema Neuro: COMMON NORMALS: patient oriented x3 SENSORIUM/ORIENTATION: Yes alert MENINGEAL SIGNS: Yes no meningeal signs Course Reevaluation(s): Reevaluation #1: Patient appears to have dementia. Long conversation with family members at the bedside the patient can remember that it is his daughter sitting in the room but cannot remember her name. Patient laughs and uses some confabulation coping systems. Patient's daughter states the patient has had some time to where he is, cannot manage his own money and has had issues with memory. I did discuss at length with options. About [facility] placement or further evaluation for dementia related issues. Daughter is going to discuss with sister most likely will take the patient home. They will stay with the patient. They were made advised to remove any weapons from the home and also to take the patient's keys away due to his desire to drive to [place]. Patient is pleasant in the room with daughter states understanding of the need to listen to daughter. The two siblings will discuss further options with son-in-law and most likely will request discharge home. Will wait for further advisement from them. Patient recently had a lower abdominal surgery due to hernia and replacement of mesh and also had a COVID-19 infection and daughter believes this is what is made his dementia issues worse. Time: 19:55 Vital Signs: Vital signs: Vital Signs Temperature 98.0 F 10/03/20 16:13 Pulse Rate 72 10/03/20 19:32 Respiratory Rate 16 10/03/20 19:32 Blood Pressure 98/57 10/03/20 19:32 Pulse Oximetry 97 10/03/20 19:32 MDM - Altered Mental Status MDM Narrative: Medical decision making narrative: Patient appears to have dementia. Long conversation with family members at the bedside the patient can remember that it is his daughter sitting in the room but cannot remember her name. Patient laughs and uses some confabulation coping systems. Patient's daughter states the patient has had some time to where he is, cannot manage his own money and has had issues with memory. I did discuss at length with options. About [facility] placement or further evaluation for dementia related issues. Daughter is going to discuss with sister most likely will take the patient home. They will stay with the patient. They were made advised to remove any weapons from the home and also to take the patient's keys away due to his desire to drive to [place]. Patient is pleasant in the room with daughter states understanding of the need to listen to daughter. The two siblings will discuss further options with son-in-law and most likely will request discharge home. Will wait for further advisement from them. Lab Data: Labs: Lab Results 10/03/20 10/03/20 10/03/20 Range/Units 17:25 17:25 17:25 WBC 15.3 H (4.0-10.0) 10^3/ uL RBC 5.23 (4.1-5.3) 10^6/u L Hgb 15.7 (11.7-16.6) g/dL Hct 46.9 (42.0-52.0) % MCV 89.7 (80-94) fl MCH 30.0 (28.0-34.0) pg MCHC 33.5 (30.0-36.0) g/dL RDW 12.9 (12.1-15.1) % Plt Count 188 (130-400) 10^3/c mm MPV 10.7 H (7.4-10.4) fL Neut % (Auto) 61.7 % Lymph % (Auto) 32.0 % [facility] % (Auto) 5.1 % Eos % (Auto) 0.7 % Baso % (Auto) 0.1 % Neut # (Auto) 9.45 H (1.8-7.7) 10^3/u L Lymph # (Auto) 4.9 H (0.8-4.8) 10^3/u L [facility] # (Auto) 0.8 (0.2-0.9) 10^3/u L Eos # (Auto) 0.1 (0.0-0.8) 10^3/u L Baso # (Auto) 0.0 (0.0-0.1) 10^3/u L Nucleated RBC % (a uto) 0 % Nucleated RBCs # 0.0 /100WBC PT 13.60 (12.1-14.9) SECO NDS INR 1.01 (0.8-1.2) APTT 25.5 (23.9-36.7) SECO NDS Sodium 138 (136-145) mmol/L Potassium 4.0 (3.5-5.1) mmol/L Chloride 96 L (98-107) mmol/L Carbon Dioxide 34 H (22-29) mmol/L Anion Gap 12.0 (5-19) BUN 21 (8-23) mg/dL Creatinine 1.1 (0.7-1.2) mg/dL GFR Calculation Not Reportable Glucose 90 (65-115) mg/dL Calculated Osmolal ity 289 (285-295) mOsm/k g Calcium 8.4 L (8.5-10.5) mg/dL Total Bilirubin 1.0 (0.15-1.2) mg/dL AST 18 (0-40) U/L ALT 20 (0-41) U/L Alkaline Phosphata se 66 (40-130) IU/L Ammonia (16-60) umol/L Troponin T Gen 5 n g/L (0-15) ng/L NT-Pro-B Natriuret Pep 349 (0-450) pg/mL Total Protein 5.6 L (6.6-8.7) g/dL Albumin 3.4 L (3.5-5.2) g/dL Globulin 2.2 (1.3-4.6) g/dL Urine Color (Yellow) Urine Appearance (CLEAR) Urine pH (5-7) Ur Specific Gravit y (1.005-1.030) Urine Protein (Negative) Urine Glucose (UA) (Normal) Urine Ketones (Negative) Urine Blood (Negative) Urine Nitrate (Negative) Urine Bilirubin (Negative) Urine Urobilinogen (Negative) mg/dL Ur Leukocyte Jayashree ase (Negative) Urine RBC (0-2) /hpf Urine WBC (0-5) /hpf Ur Squamous Epith Cells (0-5) /hpf Amorphous Sediment Urine Bacteria (NONE) /hpf Salicylates < 0.3 L (3-10) mg/dL Urine Opiates Scre en (Negative) ng/mL Ur Barbiturates Sc reen (Negative) ng/mL Ur Phencyclidine S crn (Negative) ng/mL Ur Amphetamines Sc reen (Negative) ng/mL U Benzodiazepines Scrn (Negative) ng/mL Urine Cocaine Scre en (Negative) ng/mL U Marijuana (THC) Screen (Negative) ng/mL Ethyl Alcohol < 10 (0-10) mg/dL 10/03/20 10/03/20 10/03/20 Range/Units 17:25 18:43 18:43 WBC (4.0-10.0) 10^3/ uL RBC (4.1-5.3) 10^6/u L Hgb (11.7-16.6) g/dL Hct (42.0-52.0) % MCV (80-94) fl MCH (28.0-34.0) pg MCHC (30.0-36.0) g/dL RDW (12.1-15.1) % Plt Count (130-400) 10^3/c mm MPV (7.4-10.4) fL Neut % (Auto) % Lymph % (Auto) % [facility] % (Auto) % Eos % (Auto) % Baso % (Auto) % Neut # (Auto) (1.8-7.7) 10^3/u L Lymph # (Auto) (0.8-4.8) 10^3/u L [facility] # (Auto) (0.2-0.9) 10^3/u L Eos # (Auto) (0.0-0.8) 10^3/u L Baso # (Auto) (0.0-0.1) 10^3/u L Nucleated RBC % (a uto) % Nucleated RBCs # /100WBC PT (12.1-14.9) SECO NDS INR (0.8-1.2) APTT (23.9-36.7) SECO NDS Sodium (136-145) mmol/L Potassium (3.5-5.1) mmol/L Chloride (98-107) mmol/L Carbon Dioxide (22-29) mmol/L Anion Gap (5-19) BUN (8-23) mg/dL Creatinine (0.7-1.2) mg/dL GFR Calculation Glucose (65-115) mg/dL Calculated Osmolal ity (285-295) mOsm/k g Calcium (8.5-10.5) mg/dL Total Bilirubin (0.15-1.2) mg/dL AST (0-40) U/L ALT (0-41) U/L Alkaline Phosphata se (40-130) IU/L Ammonia (16-60) umol/L Troponin T Gen 5 n g/L 30 H (0-15) ng/L NT-Pro-B Natriuret Pep (0-450) pg/mL Total Protein (6.6-8.7) g/dL Albumin (3.5-5.2) g/dL Globulin (1.3-4.6) g/dL Urine Color Yellow (Yellow) Urine Appearance Clear (CLEAR) Urine pH 5 (5-7) Ur Specific Gravit y 1.015 (1.005-1.030) Urine Protein 1+ H (Negative) Urine Glucose (UA) Norm (Normal) Urine Ketones Negative (Negative) Urine Blood Neg (Negative) Urine Nitrate Negative (Negative) Urine Bilirubin 1+ H (Negative) Urine Urobilinogen 4 H (Negative) mg/dL Ur Leukocyte Jayashree ase Trace H (Negative) Urine RBC None (0-2) /hpf Urine WBC 0-4 H (0-5) /hpf Ur Squamous Epith Cells 0-4 H (0-5) /hpf Amorphous Sediment Not Reportable Urine Bacteria Trace (NONE) /hpf Salicylates (3-10) mg/dL Urine Opiates Scre en Negative (Negative) ng/mL Ur Barbiturates Sc reen Negative (Negative) ng/mL Ur Phencyclidine S crn Negative (Negative) ng/mL Ur Amphetamines Sc reen Negative (Negative) ng/mL U Benzodiazepines Scrn Negative (Negative) ng/mL Urine Cocaine Scre en Negative (Negative) ng/mL U Marijuana (THC) Screen Negative (Negative) ng/mL Ethyl Alcohol (0-10) mg/dL 10/03/20 Range/Units 19:20 WBC (4.0-10.0) 10^3/ uL RBC (4.1-5.3) 10^6/u L Hgb (11.7-16.6) g/dL Hct (42.0-52.0) % MCV (80-94) fl MCH (28.0-34.0) pg MCHC (30.0-36.0) g/dL RDW (12.1-15.1) % Plt Count (130-400) 10^3/c mm MPV (7.4-10.4) fL Neut % (Auto) % Lymph % (Auto) % [facility] % (Auto) % Eos % (Auto) % Baso % (Auto) % Neut # (Auto) (1.8-7.7) 10^3/u L Lymph # (Auto) (0.8-4.8) 10^3/u L [facility] # (Auto) (0.2-0.9) 10^3/u L Eos # (Auto) (0.0-0.8) 10^3/u L Baso # (Auto) (0.0-0.1) 10^3/u L Nucleated RBC % (a uto) % Nucleated RBCs # /100WBC PT (12.1-14.9) SECO NDS INR (0.8-1.2) APTT (23.9-36.7) SECO NDS Sodium (136-145) mmol/L Potassium (3.5-5.1) mmol/L Chloride (98-107) mmol/L Carbon Dioxide (22-29) mmol/L Anion Gap (5-19) BUN (8-23) mg/dL Creatinine (0.7-1.2) mg/dL GFR Calculation Glucose (65-115) mg/dL Calculated Osmolal ity (285-295) mOsm/k g Calcium (8.5-10.5) mg/dL Total Bilirubin (0.15-1.2) mg/dL AST (0-40) U/L ALT (0-41) U/L Alkaline Phosphata se (40-130) IU/L Ammonia 46 (16-60) umol/L Troponin T Gen 5 n g/L (0-15) ng/L NT-Pro-B Natriuret Pep (0-450) pg/mL Total Protein (6.6-8.7) g/dL Albumin (3.5-5.2) g/dL Globulin (1.3-4.6) g/dL Urine Color (Yellow) Urine Appearance (CLEAR) Urine pH (5-7) Ur Specific Gravit y (1.005-1.030) Urine Protein (Negative) Urine Glucose (UA) (Normal) Urine Ketones (Negative) Urine Blood (Negative) Urine Nitrate (Negative) Urine Bilirubin (Negative) Urine Urobilinogen (Negative) mg/dL Ur Leukocyte Jayashree ase (Negative) Urine RBC (0-2) /hpf Urine WBC (0-5) /hpf Ur Squamous Epith Cells (0-5) /hpf Amorphous Sediment Urine Bacteria (NONE) /hpf Salicylates (3-10) mg/dL Urine Opiates Scre en (Negative) ng/mL Ur Barbiturates Sc reen (Negative) ng/mL Ur Phencyclidine S crn (Negative) ng/mL Ur Amphetamines Sc reen (Negative) ng/mL U Benzodiazepines Scrn (Negative) ng/mL Urine Cocaine Scre en (Negative) ng/mL U Marijuana (THC) Screen (Negative) ng/mL Ethyl Alcohol (0-10) mg/dL Imaging Data^: CT Head: Attestation: I personally reviewed and interpreted this imaging study as follows: Radiologist's impression: IMPRESSION: 1. [id number] senescent changes as above. 2. No acute intracranial abnormality is identified. CXR: Attestation: I personally reviewed and interpreted this imaging study as follows: Radiologist's impression: IMPRESSION: 1. There are patchy opacities in the peripheral aspect of the mid and lower right chest concerning for pneumonia. 2. Probable nipple shadows overlying the lower chest bilaterally. EKG Data^: EKG 1: Attestation: I personally reviewed and interpreted this EKG as follows: EKG interpretation date: 10/03/20 EKG interpretation time: 17:33 Prior EKG tracings: available for review Interpretation: Sinus rhythm with nonspecific ST changes. Heart rate 78. Discharge Plan Discharge Patient Disposition: Home Clinical Impression: Dementia Condition: Stable Prescriptions: No Action rosuvastatin 10 mg tablet 10 mg PO QAM RF: 0 Flomax 0.4 mg capsule 0.4 mg PO QAM Qty: 90 RF: 1 ProAir HFA 90 mcg/actuation Hfa Aerosol Inhaler 2 puff INHALATION QID PRN (Reason: Shortness Of Breath) RF: 0 Lasix 40 mg tablet 40 mg PO QAM RF: 0 metformin 500 mg tablet 500 mg PO QAM RF: 0 potassium chloride 10 mEq capsule, extended release 10 meq PO QAM RF: 0 amlodipine 10 mg tablet 10 mg PO QAM RF: 0 Colace 100 mg capsule 100 mg PO BID PRN (Reason: Constipation) RF: 0 benazepril 20 mg tablet 20 mg PO QAM RF: 0 Spiriva with HandiHaler 18 mcg capsule, w/inhalation device 1 cap INHALATION QAM RF: 0 Rashmi Allergy 180 mg tablet 180 mg PO DAILY RF: 0 Discharge Orders: Discharge ED (Routine); Ordered 10/03/20 Ordered By: Meng Muir Referrals: Chelsea Joe MD [Primary Care Provider] - Discharge Diet: Advance as tolerated Discharge Activity: Resume usual activity Patient Instructions: Opioid Safety Activity Restrictions/Additional Instructions: Dementia precautions as discussed. Do not allow the patient to drive. Make sure you remove all weapons from the home. Patient is to be scheduled an appointment with his PCP and to be set up for further dementia screening. If you have any issues and need to return to the emergency department do so. Patient be discharged home with family. Coding Level of Care Code ED Long Filler Cigar Roller Machine for Alysia Fwd Exam Comprehensive
--- NOTE | 2020-10-03 16:42 | PC.PHAR ---
PT STATES HE TAKES CARE OF HIS OWN MEDICATIONS-PT IS A LITTLE CONFUSED BUT PT KNEW NAMES OF MEDICATIONS AND STATES HE TOOK THEM ALL THIS AM-PT BROUGHT IN MEDICATION BOTTLES-RX FILLED ON 07/29/20 FOR LASIX 40MG PO QAM-PT STATES HE ONLY TAKES 40MG QAM-PT BROUGHT IN MEDICATION BOTTLE DATED 07/23/2019 FOR 40MG BID
--- NOTE | 2020-10-03 16:56 | XRR_ITS ---
PROCEDURE INFORMATION: Exam: XR Chest Exam date and time: 10/03/2020 4:56 PM Age: 85 years old Clinical indication: Cough TECHNIQUE: Imaging protocol: XR of the chest. Views: 1 view. COMPARISON: CR (CHEST, ) 09/12/2020 12:44 AM FINDINGS: Lungs: There are patchy opacities in the peripheral aspect of the mid and lower right chest concerning for pneumonia. Pleural spaces: No pleural effusion.; No pneumothorax. Heart/Mediastinum: The cardiac silhouette is unchanged. No gross evidence of pneumomediastinum. Bones/joints: No gross fracture. Soft tissues: Probable nipple shadows overlying the lower chest bilaterally. XR/XR chest 1V portable [id number] IMPRESSION: 1. There are patchy opacities in the peripheral aspect of the mid and lower right chest concerning for pneumonia. 2. Probable nipple shadows overlying the lower chest bilaterally.
--- NOTE | 2020-10-03 16:56 | ECG_ITS ---
[facility] Test Date: 2020-10-03 Pat Name: Jae Redd Department: Room: Gender: Male Receiving Dock Checker: : [id number] Requested By: Meng Muir Order Number: [id number] Glenda MD: Cecy Wilson M.D. Measurements Intervals [place] Rate: 78 P: AL: QRS: 72 QRSD: 85 T: 242 QT: 369 QTc: 422 Interpretive Statements SINUS RHYTHM WITH OCCASIONAL PVC'S ST DEVIATION AND MODERATE T-WAVE ABNORMALITY, CONSIDER ANTEROLATERAL ISCHEMIA [-0.1+ mV T-WAVE IN V3-V6] ST DEVIATION AND MODERATE T-WAVE ABNORMALITY, CONSIDER INFERIOR ISCHEMIA [-0.1+ mV T-WAVE IN II/aVF] Compared to ECG 09/09/2016 10:04:03 Possible ischemia now present T-wave abnormality still present Electronically Signed On 10-04-2020 18:04:00 CDT by Cecy Wilson M.D. [email or web address]
--- NOTE | 2020-10-03 16:56 | CTR_ITS ---
PROCEDURE INFORMATION: Exam: CT Head Without Contrast Exam date and time: 10/03/2020 4:56 PM Age: 85 years old Clinical indication: Pain. Headache. Confusion. TECHNIQUE: Imaging protocol: Computed tomography of the head without contrast. Radiation optimization: All CT scans at this facility use at least one of these dose optimization techniques: automated exposure control; mA and/or kV adjustment per patient size (includes targeted exams where dose is matched to clinical indication); or iterative reconstruction. COMPARISON: CT head wo con* [id number] 08/27/2014 11:25 AM RADIATION DOSE METRICS: Total DLP (mGy-cm): 821.19 FINDINGS: Brain: No acute intracranial hemorrhage. No mass, mass effect or midline shift.; There is no evidence of acute large vessel infarct.; There is minimal patchy subcortical and periventricular hypodensity, most commonly associated with small vessel ischemic disease of indeterminate age. The posterior fossa is grossly unremarkable; however, it is partially obscurred by beam hardening artifact. Small probable dystrophic calcification in the left occipital region. Cerebral ventricles: The ventricles are prominent, compatible with moderate parenchymal volume loss. Paranasal sinuses: The visualized paranasal sinuses are clear. Mastoid air cells: No mastoid effusion. Orbital cavity: The visualized orbits are unremarkable. Bones/joints: No acute fracture is seen. CT/CT head wo con* [id number] IMPRESSION: 1. [id number]-spgfzptl senescent changes as above. 2. No acute intracranial abnormality is identified. Radiation Dose CTDIVOL = (mGy): DLP = 821.19 (mGy-cm)
[2020-10-03 17:27] VITALS: BP 97/55; PULSE 86; RESP 18; O2SAT 93
[2020-10-03] MEDS: sodium chloride 0.9% 500 ML IV (17:36)
[2020-10-03 17:37] LABS: Basophils % 0.1 %; Eosinophils # 0.1 10^3/uL (0.0-0.8); Eosinophils % 0.7 %; Hematocrit 46.9 % (42.0-52.0); Hemoglobin 15.7 g/dL (11.7-16.6); Lymphocytes # 4.9 10^3/uL (0.8-4.8); Mean Corpuscular HGB Conc 33.5 g/dL (30.0-36.0); Mean Corpuscular Volume 89.7 fl (80-94); Mean Platelet Volume 10.7 fL (7.4-10.4); Monocytes # 0.8 10^3/uL (0.2-0.9); Monocytes % 5.1 %; Neutrophils # 9.45 10^3/uL (1.8-7.7); Neutrophils % 61.7 %; Nucleated Red Blood Cells % 0 %; Platelet Count 188 10^3/cmm (130-400); Red Blood Count 5.23 10^6/uL (4.1-5.3); Red Cell Distribution Width 12.9 % (12.1-15.1); White Blood Count 15.3 10^3/uL (4.0-10.0)
[2020-10-03 18:30] LABS: INR 1.01 (0.8-1.2)
[2020-10-03 18:31] LABS: Partial Thromboplastin Time 25.5 SECONDS (23.9-36.7)
[2020-10-03 18:34] LABS: Troponin T (5th) Once 30 ng/L (0-15)
[2020-10-03 18:42] VITALS: BP 115/54; PULSE 61; RESP 16; O2SAT 93
[2020-10-03 18:42] LABS: Alanine Aminotransferase 20 U/L (0-41); Albumin Level 3.4 g/dL (3.5-5.2); Alkaline Phosphatase 66 IU/L (40-130); Aspartate Amino Transferase 18 U/L (0-40); Blood Urea Nitrogen 21 mg/dL (8-23); Calcium 8.4 mg/dL (8.5-10.5); Carbon Dioxide 34 mmol/L (22-29); Chloride 96 mmol/L (98-107); Globulin 2.2 g/dL (1.3-4.6); Glucose 90 mg/dL (65-115); NT Pro B Type Natriuretic Pept 349 pg/mL (0-450); Osmolality Calculated 289 mOsm/kg (285-295); Sodium 138 mmol/L (136-145); Total Protein 5.6 g/dL (6.6-8.7)
[2020-10-03 18:49] LABS: Alcohol Level < 10 mg/dL (0-10); Salicylate < 0.3 mg/dL (3-10)
[2020-10-03 19:29] LABS: Glucose Urine UA Norm (Normal); Ketones Urine Negative (Negative); Protein Urine 1+ (Negative); Specific Gravity, Urine 1.015 (1.005-1.030); Urine Appearance Clear (CLEAR); Urine Color Yellow (Yellow); pH Urine 5 (5-7)
[2020-10-03 19:30] LABS: Add Urine Microscopic? YES; Bacteria Urine TRACE /hpf; Bilirubin Urine 1+ (Negative); Blood Urine Neg (Negative); Leukocyte Esterase Urine Trace (Negative); Nitrate Urine Negative (Negative); Squamous Epithelial Cell Urine 0-4 /hpf (0-5); Urobilinogen Urine 4 mg/dL (Negative); WBC Urine 0-4 /hpf (0-5)
[2020-10-03 19:32] VITALS: BP 98/57; PULSE 72; RESP 16; O2SAT 97
[2020-10-03 19:34] LABS: Amphetamines Screen Urine Negative (Negative); Barbiturates Screen Urine Negative (Negative); Benzodiazepines Screen Urine Negative (Negative); Cocaine Screen Urine Negative (Negative); Opiate Screen Urine Negative (Negative); PCP Screen Urine Negative (Negative); THC Screen Urine Negative (Negative)
[2020-10-03 19:58] LABS: Ammonia 46 umol/L (16-60)
[2020-10-03 20:39] VITALS: BP 98/62; PULSE 94; RESP 18; O2SAT 93
== END 2020-10-03 20:30 | disposition home or self-care (01) ==
PROVIDERS: Emergency Provider Emergency Medicine; PCP Family Medicine
DX: F03.90 Unspecified dementia, unspecified severity, without behavioral disturbance, psychotic disturbance, mood disturbance, and anxiety (principal); Z79.84 Long term (current) use of oral hypoglycemic drugs; E11.9 Type 2 diabetes mellitus without complications; I10 Essential (primary) hypertension; I25.2 Old myocardial infarction
CPT/HCPCS: 70450; 71045; 80053; 80306; 80307; 81000; 81001; 82140; 83880; 84443; 84484; 85025; 85610; 85730; 93005; 96360; 99284; J7040

== ENCOUNTER 2020-10-04 16:26 | Emergency (ER) | payer MEDICARE, SELFPAY ==
[2020-10-04 16:40] VITALS: BP 134/71; PULSE 78; RESP 16; TEMP 37.1; O2SAT 93; BMI 22.2
[2020-10-04 18:23] LABS: Basophils # 0.1 10^3/uL (0.0-0.1); Basophils % 0.3 %; Eosinophils # 0.2 10^3/uL (0.0-0.8); Eosinophils % 1.3 %; Hematocrit 46.3 % (42.0-52.0); Hemoglobin 14.7 g/dL (11.7-16.6); Lymphocytes # 5.2 10^3/uL (0.8-4.8); Lymphocytes % 34.6 %; Mean Corpuscular HGB Conc 31.7 g/dL (30.0-36.0); Mean Corpuscular Hemoglobin 29.7 pg (28.0-34.0); Mean Corpuscular Volume 93.5 fl (80-94); Monocytes % 6.3 %; Neutrophils # 8.66 10^3/uL (1.8-7.7); Neutrophils % 57.1 %; Nucleated Red Blood Cells % 0 %; Platelet Count 137 10^3/cmm (130-400); Red Blood Count 4.95 10^6/uL (4.1-5.3); Red Cell Distribution Width 12.9 % (12.1-15.1); White Blood Count 15.2 10^3/uL (4.0-10.0)
--- NOTE | 2020-10-04 18:26 | ED_ITS ---
HPI - Psych General: Chief Complaint: Psychiatric Symptoms Stated Complaint: 96 HOUR HOLD Time Seen by Provider: 10/04/20 16:54 History of Present Illness: HPI Narrative: Patient is a 85-year-old male with a history of Alzheimer's dementia. Was seen yesterday for unusual behavior was worked up and discharged back to family. However today while he was back at his home please were called because he threatened to take his car keys and drive anywhere probably [place] . Please place a 96-hour hold on him stating that he was a risk to himself or others. He is here for medical evaluation and [facility] psych placement Review of Systems Narrative: Denies fevers chills chest pain nausea vomiting diarrhea syncope headache shortness of breath or chest pain PFSH ED PFSH: Medical History Diabetes HTN (hypertension) Hypercholesterolemia Myocardial infarct Urolithiasis Surgical History H/O esophagogastroduodenoscopy Status post colonoscopy Status post left inguinal hernia repair (08/14/20) Family History Father , PROSTATE CANCER Cancer Mother Lung disease Social History Smoking and tobacco status: never smoked Alcohol intake: current Alcohol intake frequency: holidays/special occasions only Marital status: Current occupational status: retired Physical Exam Const: COMMON NORMALS: no acute distress, patient oriented x3, healthy appearing, alert and well nourished GENERAL APPEARANCE: well kempt HENMT: COMMON NORMALS: normocephalic and atraumatic HEAD & SCALP: normoce phalic and atraumatic Eye: COMMON NORMALS: Equal, round and reactive pupils present and EOMs intact bilaterally PUPIL: Yes Equal, round and reactive pupils present Neck/C-Spine: COMMON NORMALS: full ROM Resp: COMMON NORMALS: normal respiratory effort, No use of accessory muscles and clear to auscultation bilaterally AUSCULTATION: clear to auscultation bilaterally Cardio: COMMON NORMALS: regular rate and regular rhythm RATE: regular rate RHYTHM: regular rhythm Extremity: COMMON NORMALS: normal to inspection and full ROM Neuro: COMMON NORMALS: patient oriented x3, CN's II-XII intact bilaterally, moves all extremities, no focal motor deficits and no sensory deficits noted SENSORIUM/ORIENTATION: Yes alert Psych: COMMON NORMALS: mental status grossly normal and speech normal APPEARANCE: Yes grossly normal and Yes well kempt ATTITUDE: Yes aggressive ACTIVITY/MOTOR BEHAVIOR: Yes appropriate eye contact and No psychomotor agitation SPEECH: Yes normal speech MOOD & AFFECT: Yes euthymic mood and Yes Labile affect present THOUGHT PROCESS: disorganized and confused ATTENTION/CONCENTRATION: Yes attention grossly impaired MEMORY/COGNITION: Yes memory grossly impaired and Yes cognition grossly impaired INSIGHT: Poor insight present (Psych) JUDGEMENT: Poor judgement present (Psych) Course ED course: Patient is a 85-year-old gentleman here for medical clearance for [facility] psych placement. Hold has been placed based upon affidavit from please department. He is medically cleared and will work on placement Vital Signs: Vital signs: Vital Signs Temperature 98.7 F 10/04/20 16:40 Pulse Rate 78 10/04/20 16:40 Respiratory Rate 16 10/04/20 16:40 Blood Pressure 134/71 10/04/20 16:40 Pulse Oximetry 93 10/04/20 16:40 MDM - Psych Lab Data: Labs: Lab Results 10/04/20 10/04/20 10/04/20 Range/Units 18:00 18:00 19:31 WBC 15.2 H (4.0-10.0) 10^3/ uL RBC 4.95 (4.1-5.3) 10^6/u L Hgb 14.7 (11.7-16.6) g/dL Hct 46.3 (42.0-52.0) % MCV 93.5 (80-94) fl MCH 29.7 (28.0-34.0) pg MCHC 31.7 D (30.0-36.0) g/dL RDW 12.9 (12.1-15.1) % Plt Count 137 (130-400) 10^3/c mm MPV 12.0 H (7.4-10.4) fL Neut % (Auto) 57.1 % Lymph % (Auto) 34.6 % Brewster % (Auto) 6.3 % Eos % (Auto) 1.3 % Baso % (Auto) 0.3 % Neut # (Auto) 8.66 H (1.8-7.7) 10^3/u L Lymph # (Auto) 5.2 H (0.8-4.8) 10^3/u L Brewster # (Auto) 1.0 H (0.2-0.9) 10^3/u L Eos # (Auto) 0.2 (0.0-0.8) 10^3/u L Baso # (Auto) 0.1 (0.0-0.1) 10^3/u L Nucleated RBC % (a uto) 0 % Nucleated RBCs # 0.0 /100WBC Sodium 139 (136-145) mmol/L Potassium 4.1 (3.5-5.1) mmol/L Chloride 103 (98-107) mmol/L Carbon Dioxide 27 (22-29) mmol/L Anion Gap 13.1 (5-19) BUN 17 (8-23) mg/dL Creatinine 1.0 (0.7-1.2) mg/dL GFR Calculation Not Reportable Glucose 93 (65-115) mg/dL Calculated Osmolal ity 289 (285-295) mOsm/k g Calcium 8.1 L (8.5-10.5) mg/dL Total Bilirubin 0.9 (0.15-1.2) mg/dL AST 20 (0-40) U/L ALT 18 (0-41) U/L Alkaline Phosphata se 60 (40-130) IU/L Total Protein 5.0 L (6.6-8.7) g/dL Albumin 3.0 L (3.5-5.2) g/dL Globulin 2.0 (1.3-4.6) g/dL Urine Color (Yellow) Urine Appearance (CLEAR) Urine pH (5-7) Ur Specific Gravit y (1.005-1.030) Urine Protein (Negative) Urine Glucose (UA) (Normal) Urine Ketones (Negative) Urine Blood (Negative) Urine Nitrate (Negative) Urine Bilirubin (Negative) Prot Sulfosalicyli c Acd (Negative) Urine Urobilinogen (Negative) mg/dL Ur Leukocyte Jayashree ase (Negative) Urine RBC (0-2) /hpf Urine WBC (0-5) /hpf Ur Squamous Epith Cells (0-5) /hpf Amorphous Sediment Urine Bacteria (NONE) /hpf Urine Mucus /hpf Salicylates < 0.3 L (3-10) mg/dL Urine Opiates Scre en (Negative) ng/mL Acetaminophen < 5.0 L (10-30) ug/mL Ur Barbiturates Sc reen (Negative) ng/mL Ur Phencyclidine S crn (Negative) ng/mL Ur Amphetamines Sc reen (Negative) ng/mL U Benzodiazepines Scrn (Negative) ng/mL Urine Cocaine Scre en (Negative) ng/mL U Marijuana (THC) Screen (Negative) ng/mL Ethyl Alcohol < 10 (0-10) mg/dL SARS-CoV-2 Ag (Rap id) Negative (Negative) 10/04/20 10/04/20 Range/Units 19:31 19:31 WBC (4.0-10.0) 10^3/ uL RBC (4.1-5.3) 10^6/u L Hgb (11.7-16.6) g/dL Hct (42.0-52.0) % MCV (80-94) fl MCH (28.0-34.0) pg MCHC (30.0-36.0) g/dL RDW (12.1-15.1) % Plt Count (130-400) 10^3/c mm MPV (7.4-10.4) fL Neut % (Auto) % Lymph % (Auto) % Brewster % (Auto) % Eos % (Auto) % Baso % (Auto) % Neut # (Auto) (1.8-7.7) 10^3/u L Lymph # (Auto) (0.8-4.8) 10^3/u L Brewster # (Auto) (0.2-0.9) 10^3/u L Eos # (Auto) (0.0-0.8) 10^3/u L Baso # (Auto) (0.0-0.1) 10^3/u L Nucleated RBC % (a uto) % Nucleated RBCs # /100WBC Sodium (136-145) mmol/L Potassium (3.5-5.1) mmol/L Chloride (98-107) mmol/L Carbon Dioxide (22-29) mmol/L Anion Gap (5-19) BUN (8-23) mg/dL Creatinine (0.7-1.2) mg/dL GFR Calculation Glucose (65-115) mg/dL Calculated Osmolal ity (285-295) mOsm/k g Calcium (8.5-10.5) mg/dL Total Bilirubin (0.15-1.2) mg/dL AST (0-40) U/L ALT (0-41) U/L Alkaline Phosphata se (40-130) IU/L Total Protein (6.6-8.7) g/dL Albumin (3.5-5.2) g/dL Globulin (1.3-4.6) g/dL Urine Color Yellow (Yellow) Urine Appearance Hazy A (CLEAR) Urine pH 8 H (5-7) Ur Specific Gravit y 1.005 (1.005-1.030) Urine Protein Neg (Negative) Urine Glucose (UA) Norm (Normal) Urine Ketones 1+ H (Negative) Urine Blood Neg (Negative) Urine Nitrate Negative (Negative) Urine Bilirubin 1+ H (Negative) Prot Sulfosalicyli c Acd Negative (Negative) Urine Urobilinogen 8 H (Negative) mg/dL Ur Leukocyte Jayashree ase Trace H (Negative) Urine RBC 0-4 H (0-2) /hpf Urine WBC 5-10 H (0-5) /hpf Ur Squamous Epith Cells 0-4 H (0-5) /hpf Amorphous Sediment Not Reportable Urine Bacteria Trace (NONE) /hpf Urine Mucus 2+ /hpf Salicylates (3-10) mg/dL Urine Opiates Scre en Negative (Negative) ng/mL Acetaminophen (10-30) ug/mL Ur Barbiturates Sc reen Negative (Negative) ng/mL Ur Phencyclidine S crn Negative (Negative) ng/mL Ur Amphetamines Sc reen Negative (Negative) ng/mL U Benzodiazepines Scrn Negative (Negative) ng/mL Urine Cocaine Scre en Negative (Negative) ng/mL U Marijuana (THC) Screen Negative (Negative) ng/mL Ethyl Alcohol (0-10) mg/dL SARS-CoV-2 Ag (Rap id) (Negative) Imaging Data^: CXR: My impression: No acute cardiopulmonary process Discharge Plan Discharge Prescriptions: No Action rosuvastatin 10 mg tablet 10 mg PO QAM RF: 0 Flomax 0.4 mg capsule 0.4 mg PO QAM Qty: 90 RF: 1 albuterol sulfate [ProAir HFA] 90 mcg/actuation Hfa Aerosol Inhaler 2 puff INHALATION QID PRN (Reason: Shortness Of Breath) RF: 0 furosemide [Lasix] 40 mg tablet 40 mg PO QAM RF: 0 metformin 500 mg tablet 500 mg PO QAM RF: 0 potassium chloride 10 mEq capsule, extended release 10 meq PO QAM RF: 0 amlodipine 10 mg tablet 10 mg PO QAM RF: 0 docusate sodium [Colace] 100 mg capsule 100 mg PO BID PRN (Reason: Constipation) RF: 0 benazepril 20 mg tablet 20 mg PO QAM RF: 0 Spiriva with HandiHaler 18 mcg capsule, w/inhalation device 1 cap INHALATION QAM RF: 0 fexofenadine [Rashmi Allergy] 180 mg tablet 180 mg PO DAILY RF: 0 Coding Level of Care Code ED Specification Consultant for Chg Fwd Exam Comprehensive
[2020-10-04 18:40] LABS: Alanine Aminotransferase 18 U/L (0-41); Alkaline Phosphatase 60 IU/L (40-130); Aspartate Amino Transferase 20 U/L (0-40); Blood Urea Nitrogen 17 mg/dL (8-23); Calcium 8.1 mg/dL (8.5-10.5); Carbon Dioxide 27 mmol/L (22-29); Chloride 103 mmol/L (98-107); Glucose 93 mg/dL (65-115); Osmolality Calculated 289 mOsm/kg (285-295); Sodium 139 mmol/L (136-145); Total Bilirubin 0.9 mg/dL (0.15-1.2)
[2020-10-04 18:41] LABS: Acetaminophen < 5.0 ug/mL (10-30); Alcohol Level < 10 mg/dL (0-10); Salicylate < 0.3 mg/dL (3-10)
[2020-10-04 18:42] LABS: Anion Gap 13.1 (5-19); Potassium 4.1 mmol/L (3.5-5.1)
[2020-10-04 19:28] LABS: Slide Review Slide Review Perform
[2020-10-04 19:49] LABS: Amphetamines Screen Urine Negative (Negative); Barbiturates Screen Urine Negative (Negative); Benzodiazepines Screen Urine Negative (Negative); Cocaine Screen Urine Negative (Negative); Opiate Screen Urine Negative (Negative); PCP Screen Urine Negative (Negative); THC Screen Urine Negative (Negative)
[2020-10-04 19:52] LABS: Blood Urine Neg (Negative); Glucose Urine UA Norm (Normal); Ketones Urine 1+ (Negative); Nitrate Urine Negative (Negative); Protein Urine Neg (Negative); Specific Gravity, Urine 1.005 (1.005-1.030); Urine Appearance Hazy (CLEAR); Urine Color Yellow (Yellow); pH Urine 8 (5-7)
[2020-10-04 19:53] LABS: Add Urine Microscopic? YES; Bilirubin Urine 1+ (Negative); Leukocyte Esterase Urine Trace (Negative); Sulfosalicylic Acid Urine Negative (Negative); Urobilinogen Urine 8 mg/dL (Negative)
[2020-10-04 19:54] LABS: Bacteria Urine TRACE /hpf; Mucus Urine 2+ /hpf; RBC Urine 0-4 /hpf (0-2); Squamous Epithelial Cell Urine 0-4 /hpf (0-5)
[2020-10-04 19:55] LABS: Add Urine Culture? No; SARS Covid-2 Antigen Negative (Negative)
--- NOTE | 2020-10-04 20:54 | XRR_ITS ---
PROCEDURE INFORMATION: Exam: XR Chest Exam date and time: 10/04/2020 8:54 PM Age: 85 years old Clinical indication: Prior surgery; Surgery type: Gb; Patient HX: Medical clearance for psych transfer. History of mi. Rapid covid test negative. TECHNIQUE: Imaging protocol: XR of the chest. Views: 1 view. COMPARISON: CR XR chest 1V portable [id number] 10/03/2020 4:58 PM FINDINGS: Lungs: Redemonstration of patulous opacities in the peripheral aspects of the right lung, not significantly changed from prior exam. Pleural spaces: Unremarkable. No pleural effusion. No pneumothorax. Heart/Mediastinum: Unremarkable. No cardiomegaly. Bones/joints: Visualized osseous structures are intact. XR/XR chest 1V portable [id number] IMPRESSION: Redemonstrated patulous opacities in the peripheral aspect of the right lung, not significantly changed from prior study.
--- NOTE | 2020-10-04 23:05 | ED_ITS ---
HPI - Psych General: Chief Complaint: Psychiatric Symptoms Stated Complaint: 96 HOUR HOLD Time Seen by Provider: 10/04/20 16:54 PFSH ED PFSH: Medical History Diabetes HTN (hypertension) Hypercholesterolemia Myocardial infarct Urolithiasis Surgical History H/O esophagogastroduodenoscopy Status post colonoscopy Status post left inguinal hernia repair (08/14/20) Family History Father , PROSTATE CANCER Cancer Mother Lung disease Social History Smoking and tobacco status: never smoked Alcohol intake: current Alcohol intake frequency: holidays/special occasions only Marital status: Current occupational status: retired Course Vital Signs: Vital signs: Vital Signs Temperature 98.7 F 10/04/20 16:40 Pulse Rate 78 10/04/20 16:40 Respiratory Rate 16 10/04/20 16:40 Blood Pressure 134/71 10/04/20 16:40 Pulse Oximetry 93 10/04/20 16:40 MDM - Psych Lab Data: Labs: Lab Results 10/04/20 10/04/20 10/04/20 Range/Units 18:00 18:00 19:31 WBC 15.2 H (4.0-10.0) 10^3/ uL RBC 4.95 (4.1-5.3) 10^6/u L Hgb 14.7 (11.7-16.6) g/dL Hct 46.3 (42.0-52.0) % MCV 93.5 (80-94) fl MCH 29.7 (28.0-34.0) pg MCHC 31.7 D (30.0-36.0) g/dL RDW 12.9 (12.1-15.1) % Plt Count 137 (130-400) 10^3/c mm MPV 12.0 H (7.4-10.4) fL Neut % (Auto) 57.1 % Lymph % (Auto) 34.6 % Beauregard % (Auto) 6.3 % Eos % (Auto) 1.3 % Baso % (Auto) 0.3 % Neut # (Auto) 8.66 H (1.8-7.7) 10^3/u L Lymph # (Auto) 5.2 H (0.8-4.8) 10^3/u L Beauregard # (Auto) 1.0 H (0.2-0.9) 10^3/u L Eos # (Auto) 0.2 (0.0-0.8) 10^3/u L Baso # (Auto) 0.1 (0.0-0.1) 10^3/u L Nucleated RBC % (a uto) 0 % Nucleated RBCs # 0.0 /100WBC Sodium 139 (136-145) mmol/L Potassium 4.1 (3.5-5.1) mmol/L Chloride 103 (98-107) mmol/L Carbon Dioxide 27 (22-29) mmol/L Anion Gap 13.1 (5-19) BUN 17 (8-23) mg/dL Creatinine 1.0 (0.7-1.2) mg/dL GFR Calculation Not Reportable Glucose 93 (65-115) mg/dL Calculated Osmolal ity 289 (285-295) mOsm/k g Calcium 8.1 L (8.5-10.5) mg/dL Total Bilirubin 0.9 (0.15-1.2) mg/dL AST 20 (0-40) U/L ALT 18 (0-41) U/L Alkaline Phosphata se 60 (40-130) IU/L Total Protein 5.0 L (6.6-8.7) g/dL Albumin 3.0 L (3.5-5.2) g/dL Globulin 2.0 (1.3-4.6) g/dL Urine Color (Yellow) Urine Appearance (CLEAR) Urine pH (5-7) Ur Specific Gravit y (1.005-1.030) Urine Protein (Negative) Urine Glucose (UA) (Normal) Urine Ketones (Negative) Urine Blood (Negative) Urine Nitrate (Negative) Urine Bilirubin (Negative) Prot Sulfosalicyli c Acd (Negative) Urine Urobilinogen (Negative) mg/dL Ur Leukocyte Jayashree ase (Negative) Urine RBC (0-2) /hpf Urine WBC (0-5) /hpf Ur Squamous Epith Cells (0-5) /hpf Amorphous Sediment Urine Bacteria (NONE) /hpf Urine Mucus /hpf Salicylates < 0.3 L (3-10) mg/dL Urine Opiates Scre en (Negative) ng/mL Acetaminophen < 5.0 L (10-30) ug/mL Ur Barbiturates Sc reen (Negative) ng/mL Ur Phencyclidine S crn (Negative) ng/mL Ur Amphetamines Sc reen (Negative) ng/mL U Benzodiazepines Scrn (Negative) ng/mL Urine Cocaine Scre en (Negative) ng/mL U Marijuana (THC) Screen (Negative) ng/mL Ethyl Alcohol < 10 (0-10) mg/dL SARS-CoV-2 Ag (Rap id) Negative (Negative) 10/04/20 10/04/20 Range/Units 19:31 19:31 WBC (4.0-10.0) 10^3/ uL RBC (4.1-5.3) 10^6/u L Hgb (11.7-16.6) g/dL Hct (42.0-52.0) % MCV (80-94) fl MCH (28.0-34.0) pg MCHC (30.0-36.0) g/dL RDW (12.1-15.1) % Plt Count (130-400) 10^3/c mm MPV (7.4-10.4) fL Neut % (Auto) % Lymph % (Auto) % Beauregard % (Auto) % Eos % (Auto) % Baso % (Auto) % Neut # (Auto) (1.8-7.7) 10^3/u L Lymph # (Auto) (0.8-4.8) 10^3/u L Beauregard # (Auto) (0.2-0.9) 10^3/u L Eos # (Auto) (0.0-0.8) 10^3/u L Baso # (Auto) (0.0-0.1) 10^3/u L Nucleated RBC % (a uto) % Nucleated RBCs # /100WBC Sodium (136-145) mmol/L Potassium (3.5-5.1) mmol/L Chloride (98-107) mmol/L Carbon Dioxide (22-29) mmol/L Anion Gap (5-19) BUN (8-23) mg/dL Creatinine (0.7-1.2) mg/dL GFR Calculation Glucose (65-115) mg/dL Calculated Osmolal ity (285-295) mOsm/k g Calcium (8.5-10.5) mg/dL Total Bilirubin (0.15-1.2) mg/dL AST (0-40) U/L ALT (0-41) U/L Alkaline Phosphata se (40-130) IU/L Total Protein (6.6-8.7) g/dL Albumin (3.5-5.2) g/dL Globulin (1.3-4.6) g/dL Urine Color Yellow (Yellow) Urine Appearance Hazy A (CLEAR) Urine pH 8 H (5-7) Ur Specific Gravit y 1.005 (1.005-1.030) Urine Protein Neg (Negative) Urine Glucose (UA) Norm (Normal) Urine Ketones 1+ H (Negative) Urine Blood Neg (Negative) Urine Nitrate Negative (Negative) Urine Bilirubin 1+ H (Negative) Prot Sulfosalicyli c Acd Negative (Negative) Urine Urobilinogen 8 H (Negative) mg/dL Ur Leukocyte Jayashree ase Trace H (Negative) Urine RBC 0-4 H (0-2) /hpf Urine WBC 5-10 H (0-5) /hpf Ur Squamous Epith Cells 0-4 H (0-5) /hpf Amorphous Sediment Not Reportable Urine Bacteria Trace (NONE) /hpf Urine Mucus 2+ /hpf Salicylates (3-10) mg/dL Urine Opiates Scre en Negative (Negative) ng/mL Acetaminophen (10-30) ug/mL Ur Barbiturates Sc reen Negative (Negative) ng/mL Ur Phencyclidine S crn Negative (Negative) ng/mL Ur Amphetamines Sc reen Negative (Negative) ng/mL U Benzodiazepines Scrn Negative (Negative) ng/mL Urine Cocaine Scre en Negative (Negative) ng/mL U Marijuana (THC) Screen Negative (Negative) ng/mL Ethyl Alcohol (0-10) mg/dL SARS-CoV-2 Ag (Rap id) (Negative) Discharge Plan Discharge Patient Disposition: Xfer Psychiatric Hosp Clinical Impression: Alzheimer disease Condition: Stable Referrals: Chelsea Joe MD [Primary Care Provider] - Coding Level of Care Code ED [employer] Engineer for [facility] [place]
--- NOTE | 2020-10-04 23:27 | PC.NURSE ---
Assumed care of this patient @ [id number] from TYSON Dutton.
[2020-10-04 23:33] VITALS: BP 125/66; PULSE 77; RESP 20; O2SAT 94
--- NOTE | 2020-10-05 06:52 | PC.NURSE ---
called report to Birgit Ventura RN at [place]
[2020-10-05 07:02] VITALS: BP 129/57; PULSE 60; RESP 18; O2SAT 93
== END 2020-10-05 10:40 ==
PROVIDERS: Emergency Provider Family Medicine; PCP Family Medicine
DX: G30.9 Alzheimer's disease, unspecified (principal); F02.80 Dementia in other diseases classified elsewhere, unspecified severity, without behavioral disturbance, psychotic disturbance, mood disturbance, and anxiety; Z79.84 Long term (current) use of oral hypoglycemic drugs; E11.9 Type 2 diabetes mellitus without complications; I10 Essential (primary) hypertension; I25.2 Old myocardial infarction; Z20.822 Contact with and (suspected) exposure to COVID-19
CPT/HCPCS: 71045; 80053; 80306; 80307; 81001; 85025; 87426; 99285

== ENCOUNTER 2022-04-07 06:24 | Outpatient (CLI) | payer MEDICARE, SELFPAY ==
--- NOTE | 2022-04-07 06:32 | US_ITS ---
WS: [id number] ULTRASOUND ABDOMEN CLINICAL INFORMATION: RLQ PAIN COMPARISON: None. FINDINGS: Liver Size: Normal. Craniocaudal length: 16.0 cm. Echogenicity: Normal. Surface nodularity: None. Mass (size and location): None. Bile ducts Intrahepatic ducts: Normal. Common bile duct diameter: 0.4 cm. Gallbladder Normal. Gallstones: None. Gallbladder sludge: None. Gallbladder wall thickening: None. Pericholecystic fluid: None. Sonographic Us sign: Absent. Pancreas Normal as visualized. Spleen Splenomegaly: None. Craniocaudal length: 8.4 cm. Right kidney: Simple RIGHT renal cyst measuring 3.4 x 2.9 x 3.1 cm Hydronephrosis: None. Size: 10.2 cm x 5.4 cm x 5.1 cm Left kidney: Simple LEFT renal cysts measuring 1.6 x 1.8 x 1.7 cm and 2.0 x 2.2 x 2.2 cm Hydronephrosis: None. Size: 11.4 cm x 4.6 cm x 4.9 cm. Abdominal aorta and IVC Visualized portions are normal. Ascites: None. US/US abdomen complete* [id number] IMPRESSION: 1. Normal liver. 2. Cholelithiasis. No gallbladder wall thickening or pericholecystic fluid. No rmal common bile duct. 3. No hydronephrosis in either kidney. 4. Normal spleen. 5. No hernia in the RIGHT or LEFT lower quadrants.
== END 2022-04-07 06:25 | disposition home or self-care (01) ==
LOC: RAD 06:25
PROVIDERS: PCP Family Medicine; Visit Provider Nurse Practitioner Family
DX: R10.31 Right lower quadrant pain (principal); K80.20 Calculus of gallbladder without cholecystitis without obstruction
CPT/HCPCS: 76700

== ENCOUNTER 2022-10-14 08:12 | Oncology outpatient (recurring) (ONCR) | payer MEDICARE, MEDICAID, SELFPAY ==
[2022-10-14 09:22] LABS: Basophils % 0.2 %; Eosinophils # 0.1 10^3/uL (0.0-0.8); Hematocrit 38.3 % (37-53); Lymphocytes # 6.3 10^3/uL (0.8-4.8); Lymphocytes % 59.7 %; Mean Corpuscular HGB Conc 32.4 g/dL (30-55); Mean Corpuscular Hemoglobin 30.3 pg (27-33); Mean Corpuscular Volume 93.6 fl (82-101); Mean Platelet Volume 10.2 fL (7.4-10.4); Monocytes # 0.7 10^3/uL (0.2-0.9); Monocytes % 7.1 %; Neutrophils # 3.35 10^3/uL (1.8-7.7); Neutrophils % 31.8 %; Nucleated Red Blood Cells % 0 %; Platelet Count 209 10^3/cmm (157-399); Red Blood Count 4.09 10^6/uL (3.85-5.65); Red Cell Distribution Width 13.7 % (12.1-15.1); White Blood Count 10.49 10^3/uL (3.29-11.43)
[2022-10-14 09:51] LABS: Alanine Aminotransferase 14 U/L (0-41); Albumin Level 4.1 g/dL (3.5-5.2); Alkaline Phosphatase 56 U/L (40-130); Anion Gap 11.8 (5-19); Aspartate Amino Transferase 16 U/L (0-40); Blood Urea Nitrogen 21 mg/dL (8-23); Calcium 8.9 mg/dL (8.5-10.5); Carbon Dioxide 30 mmol/L (22-29); Chloride 103 mmol/L (98-107); Globulin 2.6 g/dL (1.3-4.6); Glucose 111 mg/dL (65-115); Lactate Dehydrogenase 142 U/L (135-225); Osmolality Calculated 294 mOsm/kg (285-295); Potassium 4.8 mmol/L (3.5-5.1); Sodium 140 mmol/L (136-145); Total Bilirubin 0.4 mg/dL (0.15-1.2); Total Protein 6.7 g/dL (6.6-8.7)
[2022-10-16 09:15] LABS: Lymphoma Profile (BBPL) See Report
== END 2022-10-15 23:59 | disposition home or self-care (01) ==
PROVIDERS: PCP Family Medicine; Visit Provider Internal Medicine Medical Oncology
DX: D72.820 Lymphocytosis (symptomatic); I10 Essential (primary) hypertension; Z87.891 Personal history of nicotine dependence; E78.00 Pure hypercholesterolemia, unspecified; Z79.899 Other long term (current) drug therapy; Z80.42 Family history of malignant neoplasm of prostate
CPT/HCPCS: 36415; 80053; 83615; 85025; 88184; 88185; 99203

== ENCOUNTER 2022-10-28 14:10 | Oncology outpatient (recurring) (ONCR) | payer MEDICARE, MEDICAID, SELFPAY | END 2022-11-14 23:59 | disposition home or self-care (01) | PROVIDERS: PCP Family Medicine; Visit Provider Internal Medicine Medical Oncology | DX: C91.10 Chronic lymphocytic leukemia of B-cell type not having achieved remission; Z87.891 Personal history of nicotine dependence | CPT/HCPCS: 99214 ==

== ENCOUNTER 2023-02-01 10:34 | Oncology outpatient (recurring) (ONCR) | payer MEDICARE, MEDICAID, SELFPAY ==
[2023-02-01 11:16] VITALS: BP 96/58; PULSE 95; RESP 16; TEMP 36.7; O2SAT 96
[2023-02-01 11:37] LABS: Hematocrit 45.3 % (37-53); Mean Corpuscular HGB Conc 32.2 g/dL (30-55); Mean Corpuscular Hemoglobin 30.1 pg (27-33); Mean Corpuscular Volume 93.4 fl (82-101); Mean Platelet Volume 9.6 fL (7.4-10.4); Platelet Count 245 10^3/cmm (157-399); Red Blood Count 4.85 10^6/uL (3.85-5.65); Red Cell Distribution Width 13.9 % (12.1-15.1); White Blood Count 19.16 10^3/uL (3.29-11.43)
[2023-02-01 11:59] LABS: Alanine Aminotransferase 14 U/L (0-41); Albumin Level 4.1 g/dL (3.5-5.2); Alkaline Phosphatase 62 U/L (40-130); Aspartate Amino Transferase 14 U/L (0-40); Blood Urea Nitrogen 13 mg/dL (8-23); Calcium 8.9 mg/dL (8.5-10.5); Carbon Dioxide 36 mmol/L (22-29); Chloride 97 mmol/L (98-107); Globulin 2.5 g/dL (1.3-4.6); Glucose 130 mg/dL (65-115); Lactate Dehydrogenase 168 U/L (135-225); Osmolality Calculated 296 mOsm/kg (285-295); Sodium 142 mmol/L (136-145); Total Bilirubin 0.4 mg/dL (0.15-1.2); Total Protein 6.6 g/dL (6.6-8.7)
[2023-02-01 12:47] LABS: Slide Review Slide Review Perform
[2023-02-01 12:53] LABS: Absolute Eosinophils 0.2 10^3/cmm (0.0-0.7); Absolute Segmented Neutrophil 5.7 10/cmm (1.6-7.1); Eosinophils 1 %; Lymphocytes 56 %; Lymphocytes Absolute 11.7 10^3/cmm (1.2-3.4); Monocytes Absolute 0.4 10^3/cmm (0.1-0.6); Segmented Neutrophils 30 %; Total Cells Counted 100 (0-100)
[2023-02-01 12:54] LABS: Absolute Neutrophil 6.7 10^3/cmm (1.4-6.5); Anisocytosis Trace; Giant Platelets 1+; Platelet Estimate Normal (Normal); Poikilocytosis 1+; Smudge Cells 2+
== END 2023-02-14 23:59 | disposition home or self-care (01) ==
LOC: ONCMED 10:34
PROVIDERS: PCP Family Medicine; Visit Provider Internal Medicine Medical Oncology
DX: C91.10 Chronic lymphocytic leukemia of B-cell type not having achieved remission (principal); Z79.899 Other long term (current) drug therapy
CPT/HCPCS: 36415; 80053; 83615; 85007; 85025; 99213

== ENCOUNTER 2023-08-30 20:56 | Inpatient (IN) | payer MEDICARE, MEDICAID, SELFPAY ==
[2023-08-30 20:58] VITALS: BP 144/56; PULSE 77; RESP 20; TEMP 36.6; O2SAT 92; BMI 26.6
--- NOTE | 2023-08-30 21:04 | XRR_ITS ---
PROCEDURE INFORMATION: Exam: XR Chest Exam date and time: 08/30/2023 9:18 PM Age: 89 years old Clinical indication: Other: AMS TECHNIQUE: Imaging protocol: Radiologic exam of the chest. Views: 1 view. COMPARISON: CR XR chest 1V portable [id number] 10/04/2020 8:54 PM FINDINGS: Lungs: No focal consolidation. Skin folds project over both lungs. Large calcified granuloma noted. Suspected emphysematous changes. Pleural spaces: No evidence of pneumothorax. No evidence of pleural effusion. Heart/Mediastinum: Hiatal hernia. Cardiomediastinal silhouette is otherwise within normal limits. Bones/joints: No evidence of acute osseous abnormality. XR/XR chest 1V portable [id number] IMPRESSION: 1. No acute cardiopulmonary abnormality. 2. Emphysematous changes. 3. Hiatal hernia.
--- NOTE | 2023-08-30 21:04 | CTR_ITS ---
PROCEDURE INFORMATION: Exam: CT Head Without Contrast Exam date and time: 08/30/2023 9:13 PM Age: 89 years old Clinical indication: Altered mental status/memory loss; Additional info: AMS TECHNIQUE: Imaging protocol: Computed tomography of the head without contrast. Radiation optimization: All CT scans at this facility use at least one of these dose optimization techniques: automated exposure control; mA and/or kV adjustment per patient size (includes targeted exams where dose is matched to clinical indication); or iterative reconstruction. COMPARISON: CT head wo con* [id number] 10/03/2020 5:07 PM RADIATION DOSE METRICS: Total DLP (mGy-cm): 1099 FINDINGS: Brain: Sequela of mild chronic microvascular ischemic changes. Alfaro-white differentiation is otherwise maintained. There is cerebral atrophy, particularly frontal and temporal. No evidence of intra-axial or extra-axial hemorrhage. No mass effect or midline shift. Basilar cisterns are patent. Cerebral ventricles: No hydrocephalus. Paranasal sinuses: The visualized paranasal sinuses are well aerated. Mastoid air cells: The visualized mastoids and middle ears are clear. Bones: Calvarium is intact. No evidence of acute fracture. Soft tissues: No gross soft tissue abnormality. CT/CT head wo con* [id number] IMPRESSION: 1. No acute intracranial abnormality. 2. Frontotemporal predominant cerebral atrophy. Follow-up neurologic evaluation may be helpful.
[2023-08-30 21:07] VITALS: BP 144/56; PULSE 76; O2SAT 92
--- NOTE | 2023-08-30 21:32 | ED_ITS ---
HPI - Altered Mental Status 2 General: Chief Complaint: ER Hold Stated Complaint: AMS Time Seen by Provider: 08/30/23 20:58 Source: family and EMS Mode of arrival: EMS Limitations: altered mental status History of Present Illness: 89-year-old male who is here with altere d mental status. He had most of my history from a family member as patient is quite confused he is only able to tell me his name not able to really answer any other questions appropriately. Her family had been in a fpc and [place] and they were trying to get him transferred up here. He was last seen last week and by family states that he is not near this altered and they were checking into assisted living they got him there is very altered and they stated that they were not able to care from assisted living with how altered he was. Patient's had no known fevers no illness he has no complaints here to me Review of Systems 2 General: Reports: ROS unobtainable due to mental status PFSH ED 2 PFSH: Medical History (Updated 08/31/23 @ 10:59 by Marino Stewart MD) Chronic lymphocytic leukemia Myocardial infarct Urolithiasis HTN (hypertension) Hypercholesterolemia Diabetes Surgical History Status post left inguinal hernia repair (08/14/20) Status post colonoscopy H/O esophagogastroduodenoscopy Family History Father , PROSTATE CANCER Cancer Mother Lung disease Social History Smoking and tobacco/nicotine status: former use of tobacco/nicotine Quit status (tobacco/nicotine): has quit using Year quit tobacco: 1992 Former quit date comment: smoked 50 years Alcohol intake: current Alcohol intake frequency: holidays/special occasions only Marital status: Current occupational status: retired Physical Exam 2 Const: COMMON NORMALS: alert; negative for patient oriented x3 EXAM LIMITATIONS: altered mental status O RIENTATION/CONSCIOUSNESS: Yes oriented to person; not oriented to place and not oriented to time HENMT: COMMON NORMALS: normocephalic and atraumatic HEAD & SCALP: n ormocephalic and atraumatic Eye: COMMON NORMALS: Equal, round and reactive pupils present and EOMs intact bilaterally PUPIL: Yes Equal, round and reactive pupils present Neck/C-Spine: COMMON NORMALS: full ROM and supple Chest: COMMONS NORMALS: normal inspection of the chest and normal palpation of entire chest wall Resp: COMMON NORMALS: normal respiratory effort, No retractions, No use of accessory muscles and clear to auscultation bilaterally AUSCULTATION: clear to auscultation bilaterally Cardio: COMMON NORMALS: regular rate, regular rhythm and No murmurs present (Cardio) RATE: regular rate RHYTHM: regular rhythm GI: COMMON NORMALS: Normal to inspection, nondistended, normoactive bowel sounds present, Soft to palpation, non-tender and no masses PALPATION: Yes Soft to palpation Extremity: COMMON NORMALS: normal to inspection and full ROM Neuro: COMMON NORMALS: moves all extremities and no focal motor deficits; negative for patient oriented x3 SENSORIUM/ORIENTATION: Yes alert, Yes oriented to person, No oriented to place and No oriented to time Psych: COMMON NORMALS: cooperative; negative for mental status grossly normal Skin: COMMON NORMALS: no rashes or lesions noted and no wounds GENERAL SKIN EXAM: no rashes or lesions noted Course 2 Vital Signs: Vital signs: Vital Signs Temperature 97.9 F 08/30/23 20:58 Pulse Rate 80 08/31/23 09:45 Respiratory Rate 18 08/31/23 07:00 Blood Pressure 137/70 08/31/23 09:45 Pulse Oximetry 90 08/31/23 09:45 Oxygen Delivery Me thod Room Air 08/31/23 09:45 MDM - Altered Mental Status Medical Decision Making Patient presents with altered male status he was found to have a UTI could be causing his AMS I did speak to the hospitalist will admit at this time no signs of sepsis. Medical Records I reviewed the patient's medical records. Lab Data I reviewed the patient's lab results. 08/31/23 04:12 08/31/23 04:12 Radiology Impressions Chest X-Ray 08/30/23 21:04 IMPRESSION: 1. No acute cardiopulmonary abnormality. 2. Emphysematous changes. 3. Hiatal hernia. Head CT 08/30/23 21:04 IMPRESSION: 1. No acute intracranial abnormality. 2. Frontotemporal predominant cerebral atrophy. Follow-up neurologic evaluation may be helpful. Abdomen/Pelvis CT 08/31/23 07:48 IMPRESSION: 1. No obstructing ureteral calculi. 2. Prominent extrarenal pelvis bilaterally with mild dilatation of the ureters likely due to bladder outlet obstruction. Urine distended bladder with markedly enlarged prostate. 3. Recommend correlation PSA. 4. Chronic LEFT renal parenchymal calyceal and pelvic calculi similar to similar to previous. 5. Cholelithiasis. 6. Large esophageal canal hernia with herniation of a portion of the transverse colon and splenic flexure and duodenum above the diaphragm. No obstruction. This Laboratory Results WBC 13.11 10^3/uL (3.29-11.43) H 08/30/23 22: RBC 3.97 10^6/uL (3.85-5.65) 08/30/23: Hgb 11.40 g/dL (11.27-16.99) 08/30/23: Hct 37.3 % (37-53) 08/30/23: MCV 94.0 fl (82-101) 08/30/23: MCH 28.7 pg (27-33) 08/30/23: MCHC 30.6 g/dL (30-55) 08/30/23: RDW 16.6 % (12.1-15.1) H 08/30/23: Plt Count 368 10^3/cmm (157-399) 08/30/23: MPV 9.7 fL (7.4-10.4) 08/30/23: Neut % (Auto) 39.0 % 08/30/23: Lymph % (Auto) 55.4 % 08/30/23: [place] % (Auto) 4.0 % 08/30/23: Eos % (Auto) 0.3 % 08/30/23: Baso % (Auto) 0.2 % 08/30/23: Neut # (Auto) 5.11 10^3/uL (1.8-7.7) 08/30/23: Lymph # (Auto) 7.3 10^3/uL (0.8-4.8) H 08/30/23: [place] # (Auto) 0.5 10^3/uL (0.2-0.9) 08/30/23:25 Eos # (Auto) 0.0 10^3/uL (0.0-0.8) 08/30/23 22:25 Baso # (Auto) 0.0 10^3/uL (0.0-0.1) 08/30/23 22:25 Nucleated RBC % (auto) 0 % 08/30/23 22:25 Nucleated RBCs # 0.0 /100WBC 08/30/23 22:25 Sodium 142 mmol/L (136-145) 08/30/23 22:25 Potassium 3.9 mmol/L (3.5-5.1) 08/30/23 22:25 Chloride 101 mmol/L (98-107) 08/30/23 22:25 Carbon Dioxide 27 mmol/L (22-29) 08/30/23 22:25 Anion Gap 17.9 (5-19) 08/30/23 22:25 BUN 14 mg/dL (8-23) 08/30/23 22:25 Creatinine 1.0 mg/dL (0.7-1.2) 08/30/23 22: GFR Calculation Not Reportable 08/30/23 22: Glucose 106 mg/dL (65-115) 08/30/23 22:25 Calculated Osmolality 295 mOsm/kg (285-295) 08/30/23 22:25 Calcium 8.8 mg/dL (8.5-10.5) 08/30/23 22:25 Total Bilirubin 0.5 mg/dL (0.15-1.2) 08/30/23 22:25 AST 24 U/L (0-40) 08/30/23 22:25 ALT 26 U/L (0-41) 08/30/23 22:25 Alkaline Phosphatase 145 U/L (40-130) H 08/30/23 22:25 Ammonia 20 umol/L (16-60) 08/30/23 22:30 Total Protein 7.3 g/dL (6.6-8.7) 08/30/23 22:25 Albumin 3.1 g/dL (3.5-5.2) L 08/30/23 22:25 Globulin 4.2 g/dL (1.3-4.6) 08/30/23 22:25 Urine Color Yellow (Yellow) 08/30/23 22:08 Urine Appearance Slightly cloudy (CLEAR) 08/30/23 22:08 Urine pH 5 (5-7) 08/30/23 22:08 Ur Specific [place] 1.015 (1.005-1.030) 08/30/23 22:08 Urine Protein 1+ (Negative) H 08/30/23 22:08 Urine Glucose (UA) Norm (Normal) 08/30/23 22:08 Urine Ketones Negative (Negative) 08/30/23 22:08 Urine Blood 2+ (Negative) H 08/30/23 22:08 Urine Nitrate Negative (Negative) 08/30/23 22:08 Urine Bilirubin Neg (Negative) 08/30/23 22:08 Urine Urobilinogen Neg mg/dL (Negative) 08/30/23 22:08 Ur Leukocyte Esterase 2+ (Negative) H 08/30/23 22:08 Urine RBC 5-10 /hpf (0-2) H 08/30/23 22:08 Urine WBC 55-80 /hpf (0-5) H 08/30/23 22:08 Ur Squamous Epith Cells None /hpf (0-5) 08/30/23 22:08 Amorphous Sediment Not Reportable 08/30/23 22:08 Urine Bacteria 1+ /hpf (NONE) H 08/30/23 22:08 All radiology interpretation(s) finalized by discharge Discharge Plan Discharge Patient Disposition: Admitted As Inpatient Admit Provider: Erika Figueroa Clinical Impression: Acute cystitis Condition: Stable Coding Level of Care Code ED Fur Cutter for Alysia Joseph
[2023-08-30 21:37] VITALS: BP 133/82; PULSE 74; O2SAT 92
[2023-08-30 22:07] VITALS: BP 158/77; PULSE 72; O2SAT 90
[2023-08-30 22:23] LABS: Add Urine Microscopic? YES; Bilirubin Urine Neg (Negative); Blood Urine 2+ (Negative); Glucose Urine UA Norm (Normal); Ketones Urine Negative (Negative); Leukocyte Esterase Urine 2+ (Negative); Nitrate Urine Negative (Negative); Protein Urine 1+ (Negative); Specific Gravity, Urine 1.015 (1.005-1.030); Urine Appearance Slightly Cloudy (CLEAR); Urine Color Yellow (Yellow); Urobilinogen Urine Neg (Negative); pH Urine 5 (5-7)
[2023-08-30 22:24] LABS: Add Urine Culture? Yes; Bacteria Urine 1+ /hpf; WBC Urine 55-80 /hpf (0-5)
[2023-08-30 22:38] LABS: Basophils % 0.2 %; Eosinophils % 0.3 %; Hematocrit 37.3 % (37-53); Lymphocytes # 7.3 10^3/uL (0.8-4.8); Lymphocytes % 55.4 %; Mean Corpuscular HGB Conc 30.6 g/dL (30-55); Mean Corpuscular Hemoglobin 28.7 pg (27-33); Mean Platelet Volume 9.7 fL (7.4-10.4); Monocytes # 0.5 10^3/uL (0.2-0.9); Neutrophils # 5.11 10^3/uL (1.8-7.7); Nucleated Red Blood Cells % 0 %; Platelet Count 368 10^3/cmm (157-399); Red Blood Count 3.97 10^6/uL (3.85-5.65); Red Cell Distribution Width 16.6 % (12.1-15.1); White Blood Count 13.11 10^3/uL (3.29-11.43)
--- NOTE | 2023-08-30 22:54 | ECG_ITS ---
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 Measurements Intervals [place] Rate: 67 P: 89 AL: 233 QRS: 83 QRSD: 82 T: 97 QT: 397 QTc: 421 Interpretive Statements SINUS RHYTHM WITH FIRST DEGREE AV BLOCK ST DEVIATION AND MODERATE T-WAVE ABNORMALITY, CONSIDER ANTEROLATERAL ISCHEMIA [-0.1+ mV T-WAVE IN V3-V6] Compared to ECG 10/03/2020 17:33:31 First degree AV block now present T-wave abnormality still present Possible ischemia still present Electronically Signed On 08-31-2023 21:25:14 CDT by Marion Fofana M.D. [id number] f
[2023-08-30 22:56] LABS: Ammonia 20 umol/L (16-60)
[2023-08-30 22:58] LABS: Alanine Aminotransferase 26 U/L (0-41); Albumin Level 3.1 g/dL (3.5-5.2); Alkaline Phosphatase 145 U/L (40-130); Anion Gap 17.9 (5-19); Aspartate Amino Transferase 24 U/L (0-40); Blood Urea Nitrogen 14 mg/dL (8-23); Calcium 8.8 mg/dL (8.5-10.5); Carbon Dioxide 27 mmol/L (22-29); Chloride 101 mmol/L (98-107); Creatinine Clr Calc Pharmacy 46.7004; Globulin 4.2 g/dL (1.3-4.6); Glucose 106 mg/dL (65-115); Osmolality Calculated 295 mOsm/kg (285-295); Potassium 3.9 mmol/L (3.5-5.1); Sodium 142 mmol/L (136-145); Total Bilirubin 0.5 mg/dL (0.15-1.2); Total Protein 7.3 g/dL (6.6-8.7)
[2023-08-30 23:00] VITALS: BP 136/65; PULSE 68; O2SAT 91
[2023-08-30] MEDS: cefTRIAXone 1,000 mg SDV 1000 MG IVP (23:17)
[2023-08-30 23:23] LABS: Slide Review Slide Review Perform
--- NOTE | 2023-08-30 23:27 | P.HP_ITS ---
Providers/Chief Complaint 2 Admitting Physician: Erika Figueroa MD Primary Care Provider: Chelsea Joe MD Chief Complaint: AMS History of Present Illness Jae Redd is a 89 year old male With past medical history of CLL who follows with Dr. Delgado as an outpatient presented to the hospital today with altered mental status brought in by family. History was obtained from family member as patient is confused and unable to provide a history at this time. He is able to tell us his name and unable to answer any other questions appropriately. Patient was in a snf prior and had recent and they were trying to get him transferred closer to them. Patient was seen last week. Family and patient was not altered at that time. They were trying to get him into assisted living however wants to be stable patient was quite confused and unable to be accepted to assisted living and therefore was sent to the hospital. No known fevers, recent illness, cough, shortness of breath, chest pain, nausea vomiting diarrhea. On arrival to ER blood pressure 144/56, history 20, pulse 77, temperature 97.9, saturating 92% on room air. Family prefers to admit patient to assisted living if able to however if not they may consider snf as per ER physician. Medications/Allergies Home Medications Medication Instructions Recorded Confirmed Last Taken Type amlodipine 10 mg tablet 10 mg PO QAM 10/03/20 02/01/23 10/03/20 History benazepril 20 mg tablet 20 mg PO QAM 10/03/20 02/01/23 10/03/20 History furosemide 40 mg tablet (Lasix) 40 mg PO QAM SEE PHARAMCY COMMENTS 10/03/20 02/01/23 10/03/20 History metformin 500 mg tablet 500 mg PO QAM 10/03/20 02/01/23 10/04/20 History potassium chloride 10 mEq 10 meq PO QAM 10/03/20 02/01/23 10/03/20 07:00 History capsule,extended release rosuvastatin 10 mg tablet 10 mg PO QAM PRN 10/14/22 02/01/23 Unknown History tamsulosin 0.4 mg capsule (Flomax) 0.4 mg PO QAM PRN 10/14/22 02/01/23 Unknown History tramadol 50 mg tablet 50 mg PO Q6H PRN 02/01/23 02/01/23 Unknown History Allergies Allergy/AdvReac Type Severity Reaction Status Date / Time No Known Allergies Allergy Verified 02/01/23 12:27 PFSH Acute 2 PFSH: Medical History (Updated 08/30/23 @ 23:29 by Erika Figueroa MD) Chronic lymphocytic leukemia Myocardial infarct Urolithiasis HTN (hypertension) Hypercholesterolemia Diabetes Surgical History Status post left inguinal hernia repair (08/14/20) Status post colonoscopy H/O esophagogastroduodenoscopy Family History Father , PROSTATE CANCER Cancer Mother Lung disease Social History Smoking and tobacco/nicotine status: former use of tobacco/nicotine Quit status (tobacco/nicotine): has quit using Year quit tobacco: 1992 Former quit date comment: smoked 50 years Alcohol intake: current Alcohol intake frequency: holidays/special occasions only Marital status: Current occupational status: retired Vitals/I&O/Wt Last Vital Signs Temp 97.9 F 08/30/23 20:58 Pulse 68 08/30/23 23:00 Resp 20 H 08/30/23 20:58 BP 136/65 08/30/23 23:00 Pulse Ox 91 08/30/23 23:00 O2 Del Method Room Air 08/30/23 23:00 Weight last 48 hrs Weight 72.575 kg Physical Exam 2 Narrative: General: Alert oriented x1, patient seen laying in bed comfortable, no acute respiratory distress HEENT: Normocephalic, atraumatic, EOMI, Cardio: Regular rate rhythm, normal S1-S2 Respiratory: Clear to auscultation bilaterally no wheezes no rhonchi. GI: Abdomen soft, nontender, nondistended, bowel sounds + Extremities: No edema Data 08/30/23 22:25 08/30/23 22:25 A&P Assessment and plan (1) Chronic lymphocytic leukemia: (2) Urinary tract infection: Qualifiers: Hematuria presence: without hematuria Urinary tract infection type: a cute cystitis Qualified Code(s): N30.00 - Acute cystitis without hematuria (3) Alzheimer disease: (4) Dementia: (5) Altered mental status: (6) HTN (hypertension): (7) Diabetes: Plan #Altered mental status #History of CLL #UTI #Chronic congestive heart failure #Hypertension #Hyperlipidemia #Diabetes mellitus ? Check vitamin B12 level, ammonia. Initial basic labs pending at this time. Will review once available. ? UA positive for leukocyte esterase, 1+ bacteria, 55-80 WBCs. UTI may most likely be the cause of his altered mental status. CT head negative for acute stroke or hemorrhage. ? Will place on levofloxacin at this time ? Hold Lasix today. Will place on normal saline 75/cc/h gentle fluid hydration. ? Consult case management for placement ? Metformin to be held. Will place on Accu-Cheks. ? Cardiac diet ? Continue amlodipine, lisinopril I do see a history of dementia and Alzheimer's dementia listed in patient's chart from prior resolved diagnosis. Will need to confirm with family if that is the case and need to call the previous snf to assess patient's baseline mental status. No family present at bedside at this time. DVT prophylaxis: Heparin subcu bid Attestations 2 Medical Necessity Statement*: Less than 48-hour stay for management of UTI, altered mental status. If patient fails to improve may convert to an inpatient admission at that time. Diagnoses Chronic lymphocytic leukemia C91.10 Urinary tract infection N30.00 Hematuria presence: without hematuria Urinary tract infection type: acute cystitis Alzheimer disease G30.9; F02.80 Dementia F03.90 Altered mental status R41.82 HTN (hypertension) I10 Diabetes E11.9
--- NOTE | 2023-08-30 23:37 | PC.NURSE ---
pt behaviors during straight cath, pt was pulling up pants and stating bullshit leave me alone. pt here for ams and family aware of behaviors, 2 staff assist with straight cath. larry orozco states that pt pulled out 2 ivs. at this time iv estb to left fa that is coban in place.
[2023-08-31] VITALS (10 sets, daily range): BP systolic 127–151; BP diastolic 55–90; PULSE 66–80; RESP 14–18; TEMP 37; O2SAT 90–98; BMI 26.6
[2023-08-31] MEDS: heparin 5,000 unit/mL INJ 1 mL 5000 UNIT SUBCUT ×3 (00:54→23:47)
[2023-08-31] MEDS: sodium chloride 0.9% 1,000 ML 75 ML IV ×2 (01:02→14:26)
[2023-08-31 01:43] LABS: Procalcitonin 0.09 ng/mL (0-0.5); Thyroid Stimulating Hormone 4.16 uIU/mL (0.27-4.20)
[2023-08-31 04:35] LABS: Basophils % 0.1 %; Eosinophils # 0.1 10^3/uL (0.0-0.8); Eosinophils % 0.5 %; Hematocrit 34.4 % (37-53); Lymphocytes # 6.5 10^3/uL (0.8-4.8); Mean Corpuscular HGB Conc 31.1 g/dL (30-55); Mean Corpuscular Hemoglobin 29.4 pg (27-33); Mean Corpuscular Volume 94.5 fl (82-101); Mean Platelet Volume 9.7 fL (7.4-10.4); Monocytes # 0.5 10^3/uL (0.2-0.9); Monocytes % 4.6 %; Neutrophils # 3.53 10^3/uL (1.8-7.7); Neutrophils % 32.9 %; Nucleated Red Blood Cells % 0 %; Platelet Count 351 10^3/cmm (157-399); Red Blood Count 3.64 10^6/uL (3.85-5.65); Red Cell Distribution Width 16.7 % (12.1-15.1); White Blood Count 10.72 10^3/uL (3.29-11.43)
[2023-08-31 04:50] LABS: Anion Gap 16.7 (5-19); Blood Urea Nitrogen 12 mg/dL (8-23); Calcium 8.3 mg/dL (8.5-10.5); Carbon Dioxide 28 mmol/L (22-29); Chloride 102 mmol/L (98-107); Creatinine Clr Calc Pharmacy 51.8894; Glucose 105 mg/dL (65-115); Magnesium 1.7 mg/dL (1.7-2.3); Osmolality Calculated 296 mOsm/kg (285-295); Potassium 3.7 mmol/L (3.5-5.1); Sodium 143 mmol/L (136-145)
[2023-08-31 04:53] LABS: Slide Review Slide Review Perform
[2023-08-31] MEDS: amlodipine 10 mg Tablet PO (06:05)
--- NOTE | 2023-08-31 07:33 | PC.PHAR ---
PT LEFT CORRECTION FOR PLACEMENT ELSEWHERE. PT DISCHARGED WITH THE CURRENT MEDICATIONS.
--- NOTE | 2023-08-31 07:48 | CT_ITS ---
WS: [id number] CT ABDOMEN PELVIS TECHNIQUE: Noncontrast CT of the abdomen and pelvis with coronal and sagittal reformatted images. CLINICAL INFORMATION: renal stone COMPARISON: 2020 DLP: 541.[address] scans at [facility] use at least one of these dose optimization techniques: automated e xposure control; mA and/or kV adjustment per patient size (includes targeted exams where dose is matc hed to clinical indication); or iterative reconstruction. FINDINGS: Some images degraded by respiratory artifact which limits evaluation in the upper abdomen Large esophageal canal hernia similar to previous. Herniation of a portion of the distal transverse c olon and splenic flexure. In addition herniation of proximal duodenum. Advanced chronic emphysematou s changes in the lung bases. Cholelithiasis. A few small hepatic cysts. Images in the upper abdomen a re degraded by motion. Vascular calcification. Adrenal glands are normal. Fatty atrophy of the pancre as. Numerous LEFT renal parenchymal and calyceal calculi. LEFT renal pelvic calculi similar to previo us. Incidental renal cysts. Dilatation of the LEFT renal pelvis. Dilatation of the RIGHT renal pelvis. No obstructing ureteral ca lculi. Urine distended bladder with bladder outlet obstruction. Markedly enlarged heterogeneous prostate dillon picious for neoplasia. Recommend correlation PSA. Prostate measures approximately 5.4 cm. Sigmoid div erticulosis. No evidence of high-grade small or large bowel obstruction. Mild compression of the supe rior end plate L2. Chronic appearing compression fracture superior end plate L3 with sclerosis. 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/CT kidney stone [id number] IMPRESSION: 1. No obstructing ureteral calculi. 2. Prominent extrarenal pelvis bilaterally with mild dilatation of the ureters likely due to bladder outlet obstruction. Urine distended bladder with markedl y enlarged prostate. 3. Recommend correlation PSA. 4. Chronic LEFT renal parenchymal calyceal and pelvic calculi similar to simil ar to previous. 5. Cholelithiasis. 6. Large esophageal canal hernia with herniation of a portion of the transvers e colon and splenic flexure and duodenum above the diaphragm. No obstruction. T his
--- NOTE | 2023-08-31 08:34 | PC.NURSE ---
offered PT breakfast tray. PT declined stating that he wasnt hungry
[2023-08-31] MEDS: amiodarone 200 mg Tablet PO ×2 (09:40→17:11)
[2023-08-31] MEDS: tamsulosin 0.4 mg Capsule PO (09:40)
[2023-08-31] MEDS: quetiapine 25 mg Tablet PO (09:40)
--- NOTE | 2023-08-31 09:49 | PC.PHAR ---
VASQUEZ STATES PT LAST TOOK MEDICATIONS IN THE MORNING YESTERDAY. PT HAS A BAG OF PILL CARDS WITH CURRENT MEDICATIONS FROM LONG TERM FACILITY. ORGANIZED IN ALPHABETICAL ORDER AND ADDED TO CHART.
[2023-08-31 12:09] LABS: Glucose Point of Care 100 mg/dL (70-110)
[2023-08-31 17:13] LABS: Glucose Point of Care 82 mg/dL (70-110)
--- NOTE | 2023-08-31 18:32 | P.PN_ITS ---
Subjective 2 Subjective: Patient was seen this morning, he is alert to person, not to place, not to time, he does report flank pain upon palpation of bilateral abdominal flanks, is confused, can follow commands at times, Vitals/I&O/Wt Last Vital Signs Temp 97.9 F 08/30/23 20:58 Pulse 71 08/31/23 15:41 Resp 17 08/31/23 15:41 BP 151/63 08/31/23 15:41 Pulse Ox 90 08/31/23 15:41 O2 Del Method Room Air 08/31/23 15:41 08/31/23 08/31/23 08/31/23 06:59 14:59 22:59 Intake Total 1000 / 1000 Output Total 1200 / 1200 Balance 1000 / 1000 -1200 / -200 Weight last 48 hrs Weight 72.575 kg Weight 72.575 kg Physical Exam 2 Const: COMMON NORMALS: no acute distress Resp: COMMON NORMALS: normal respiratory effort, No retractions, No use of accessory muscles and clear to auscultation bilaterally AUSCULTATION: clear to auscultation bilaterally Cardio: COMMON NORMALS: regular rate, regular rhythm, S1 normal heart sound present and S2 normal heart sound present RATE: regular rate RHYTHM: r egular rhythm HEART SOUNDS: S1 normal heart sound present and S2 normal heart sound present GI: COMMON NORMALS: Normal to inspection, nondistended, normoactive bowel sounds present and non-tender : OTHER: Bilateral CVA tenderness Extremity: COMMON NORMALS: no calf tenderness and no pedal edema Psych: COMMON NORMALS: mental status grossly normal Urinary Catheter Management: Wan: Cath Placed During This Visit: yes Reason for Continuing Indwelling Catheter: Other Urinary Catheter Date of Insertion: 08/31/23 Urinary Catheter Time of Insertion: 14:04 Data 08/31/23 04:12 08/31/23 04:12 Micro: Microbiology 08/31/23 04:12 Blood Culture - Preliminary Blood SPECIMEN COLLECTED 08/31/23 01:19 Blood Culture - Preliminary Blood SPECIMEN COLLECTED A&P Assessment and plan (1) Chronic lymphocytic leukemia: (2) Urinary tract infection: Qualifiers: Hematuria presence: without hematuria Urinary tract infection type: a cute cystitis Qualified Code(s): N30.00 - Acute cystitis without hematuria (3) Alzheimer disease: (4) Dementia: (5) Altered mental status: (6) HTN (hypertension): (7) Diabetes: Plan #Altered mental status, secondary to UTI #History of CLL #UTI #Chronic congestive heart failure #Hypertension #Hyperlipidemia #Diabetes mellitus. ? UA positive for leukocyte esterase, 1+ bacteria, 55-80 WBCs. UTI may most likely be the cause of his altered mental status. -CT head negative for acute stroke or hemorrhage. ? Continue Rocephin ? normal saline 75/cc/h gentle fluid hydration. ? Consult case management for placement ? Low-dose sliding scale ? Cardiac diet ? Continue amlodipine, lisinopril I do see a history of dementia and Alzheimer's dementia listed in patient's chart from prior resolved diagnosis. Will need to confirm with family if that is the case and need to call the previous retirement to assess patient's baseline mental status. No family present at bedside at this time. DVT prophylaxis: Heparin subcut bid Plan for today CT renal protocol, Place Wan catheter continue Rocephin, neurochecks, aspiration precautions Attestations 2 Medical Necessity Statement*: Patient requires hospitalization for acute encephalopathy, UTI, Diagnoses Chronic lymphocytic leukemia C91.10 Urinary tract infection N30.00 Hematuria presence: without hematuria Urinary tract infection type: acute cystitis Alzheimer disease G30.9; F02.80 Dementia F03.90 Altered mental status R41.82 HTN (hypertension) I10 Diabetes E11.9
[2023-08-31 20:58] LABS: Glucose Point of Care 105 mg/dL (70-110)
[2023-08-31] MEDS: cefTRIAXone 1,000 mg SDV 1000 MG IVP (23:47)
[2023-08-31] MEDS: water for injection-sterile SDV 10 mL IVP (23:47)
[2023-09-01] VITALS (7 sets, daily range): BP systolic 96–144; BP diastolic 50–76; PULSE 58–69; RESP 16–18; TEMP 36.4–37; O2SAT 90–97
[2023-09-01] MEDS: sodium chloride 0.9% 1,000 ML 75 ML IV ×2 (03:13→17:12)
[2023-09-01 05:09] LABS: Basophils % 0.2 %; Eosinophils # 0.1 10^3/uL (0.0-0.8); Eosinophils % 0.6 %; Hematocrit 35.4 % (37-53); Lymphocytes # 6.2 10^3/uL (0.8-4.8); Lymphocytes % 62.1 %; Mean Corpuscular HGB Conc 30.8 g/dL (30-55); Mean Corpuscular Hemoglobin 29.1 pg (27-33); Mean Corpuscular Volume 94.4 fl (82-101); Mean Platelet Volume 9.3 fL (7.4-10.4); Monocytes # 0.4 10^3/uL (0.2-0.9); Monocytes % 3.9 %; Neutrophils # 3.17 10^3/uL (1.8-7.7); Neutrophils % 31.6 %; Nucleated Red Blood Cells % 0 %; Platelet Count 321 10^3/cmm (157-399); Red Blood Count 3.75 10^6/uL (3.85-5.65); Red Cell Distribution Width 16.6 % (12.1-15.1); White Blood Count 10.02 10^3/uL (3.29-11.43)
[2023-09-01 05:40] LABS: Alanine Aminotransferase 16 U/L (0-41); Albumin Level 2.8 g/dL (3.5-5.2); Alkaline Phosphatase 108 U/L (40-130); Anion Gap 17.4 (5-19); Aspartate Amino Transferase 13 U/L (0-40); Blood Urea Nitrogen 7 mg/dL (8-23); Carbon Dioxide 24 mmol/L (22-29); Chloride 105 mmol/L (98-107); Creatinine Clr Calc Pharmacy 53.4558; Globulin 3.5 g/dL (1.3-4.6); Glucose 76 mg/dL (65-115); Osmolality Calculated 293 mOsm/kg (285-295); Potassium 3.4 mmol/L (3.5-5.1); Sodium 143 mmol/L (136-145); Total Bilirubin 0.3 mg/dL (0.15-1.2); Total Protein 6.3 g/dL (6.6-8.7)
[2023-09-01 05:45] LABS: Slide Review Slide Review Perform
[2023-09-01 06:17] LABS: Glucose Point of Care 86 mg/dL (70-110)
[2023-09-01] MEDS: tamsulosin 0.4 mg Capsule PO (06:17)
[2023-09-01] MEDS: amlodipine 10 mg Tablet PO (06:17)
[2023-09-01] MEDS: quetiapine 25 mg Tablet PO (08:56)
[2023-09-01] MEDS: potassium chloride ER 20 mEq Tablet 40 MEQ PO (08:56)
[2023-09-01] MEDS: amiodarone 200 mg Tablet PO ×2 (08:56→17:11)
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
[2023-09-01] MEDS: insulin lispro 100 unit/1 mL SUBCUT (13:23)
[2023-09-01] MEDS: heparin 5,000 unit/mL INJ 1 mL 5000 UNIT SUBCUT ×2 (13:24→22:53)
[2023-09-01 21:25] LABS: Glucose Point of Care 82 mg/dL (70-110)
[2023-09-01 21:25] LABS: Glucose Point of Care 95 mg/dL (70-110)
[2023-09-01 21:25] LABS: Glucose Point of Care 212 mg/dL (70-110)
[2023-09-01] MEDS: cefTRIAXone 1,000 mg SDV 1000 MG IVP (22:53)
[2023-09-02 05:18] VITALS: BP 131/71; PULSE 66; RESP 17; TEMP 36.7; O2SAT 97
[2023-09-02] MEDS: sodium chloride 0.9% 1,000 ML 75 ML IV ×2 (05:53→17:43)
[2023-09-02] MEDS: amlodipine 10 mg Tablet PO (05:54)
[2023-09-02] MEDS: tamsulosin 0.4 mg Capsule PO (05:54)
[2023-09-02 06:09] LABS: Basophils % 0.2 %; Eosinophils # 0.1 10^3/uL (0.0-0.8); Eosinophils % 1.3 %; Hematocrit 34.3 % (37-53); Lymphocytes # 5.8 10^3/uL (0.8-4.8); Lymphocytes % 66.5 %; Mean Corpuscular HGB Conc 30.6 g/dL (30-55); Mean Corpuscular Volume 94.8 fl (82-101); Mean Platelet Volume 9.7 fL (7.4-10.4); Monocytes # 0.3 10^3/uL (0.2-0.9); Monocytes % 3.8 %; Neutrophils % 27.6 %; Nucleated Red Blood Cells % 0 %; Platelet Count 310 10^3/cmm (157-399); Red Blood Count 3.62 10^6/uL (3.85-5.65); Red Cell Distribution Width 16.7 % (12.1-15.1); White Blood Count 8.69 10^3/uL (3.29-11.43)
[2023-09-02 06:26] LABS: Glucose Point of Care 116 mg/dL (70-110)
[2023-09-02 06:27] LABS: Alanine Aminotransferase 14 U/L (0-41); Albumin Level 2.5 g/dL (3.5-5.2); Alkaline Phosphatase 94 U/L (40-130); Anion Gap 14.8 (5-19); Aspartate Amino Transferase 10 U/L (0-40); Blood Urea Nitrogen 6 mg/dL (8-23); Calcium 7.6 mg/dL (8.5-10.5); Carbon Dioxide 25 mmol/L (22-29); Chloride 106 mmol/L (98-107); Creatinine Clr Calc Pharmacy 54.2587; Globulin 3.3 g/dL (1.3-4.6); Glucose 78 mg/dL (65-115); Osmolality Calculated 290 mOsm/kg (285-295); Potassium 3.8 mmol/L (3.5-5.1); Sodium 142 mmol/L (136-145); Total Bilirubin 0.2 mg/dL (0.15-1.2); Total Protein 5.8 g/dL (6.6-8.7)
[2023-09-02 08:03] VITALS: BP 122/60; PULSE 73; RESP 17; TEMP 36.4; O2SAT 91
[2023-09-02 08:04] LABS: Slide Review Slide Review Perform
[2023-09-02] MEDS: amiodarone 200 mg Tablet PO ×2 (09:04→17:44)
[2023-09-02] MEDS: quetiapine 25 mg Tablet PO (09:04)
[2023-09-02 11:23] LABS: Glucose Point of Care 150 mg/dL (70-110)
[2023-09-02 11:53] VITALS: BP 143/69; PULSE 72; RESP 18; TEMP 36.6; O2SAT 92
[2023-09-02] MEDS: insulin lispro 100 unit/1 mL SUBCUT (12:50)
[2023-09-02] MEDS: heparin 5,000 unit/mL INJ 1 mL 5000 UNIT SUBCUT ×2 (12:50→22:50)
--- NOTE | 2023-09-02 13:12 | P.PN_ITS ---
Subjective 2 Subjective: Patient was seen this morning, he is alert to person, not to place, not to time, he can follow commands, remains confused Vitals/I&O/Wt Last Vital Signs Temp 97.9 F 09/02/23 11:53 Pulse 72 09/02/23 11:53 Resp 18 09/02/23 11:53 BP 143/69 09/02/23 11:53 Pulse Ox 92 09/02/23 11:53 O2 Del Method Room Air 09/02/23 11:53 09/01/23 09/02/23 09/02/23 22:59 06:59 14:59 Intake Total 1085 / 1685 951.25 / 2636.25 600 / 600 Output Total 250 / 250 400 / 650 Balance 835 / 1435 551.25 / 1986.25 600 / 600 Weight last 48 hrs Weight 60.951 kg Weight 58.684 kg Weight 72.575 kg Physical Exam 2 Const: COMMON NORMALS: no acute distress ORIENTATION/CONSCIOUSNESS: Yes awake and Yes oriented to person; not oriented to place and not oriented to time Resp: COMMON NORMALS: normal respiratory effort, No retractions, No use of accessory muscles and clear to auscultation bilaterally AUSCULTATION: clear to auscultation bilaterally Cardio: COMMON NORMALS: regular rate, regular rhythm, S1 normal heart sound present and S2 normal heart sound present RATE: regular rate RHYTHM: r egular rhythm HEART SOUNDS: S1 normal heart sound present and S2 normal heart sound present GI: COMMON NORMALS: Normal to inspection, nondistended, normoactive bowel sounds present and non-tender Extremity: COMMON NORMALS: no pedal edema Neuro: SENSORIUM/ORIENTATION: Yes oriented to person, No oriented to place and No oriented to time Urinary Catheter Management: Wan: Cath Placed During This Visit: yes Reason for Continuing Indwelling Catheter: Acute Urinary Retention or Obstruction Urinary Catheter Date of Insertion: 08/31/23 Urinary Catheter Time of Insertion: 14:04 Data 09/02/23 05:50 09/02/23 05:50 Micro: Microbiology 08/30/23 22:08 Urine Culture - Preliminary Urine,Clean Catch Strep species, gamma-hemolytic A&P Assessment and plan (1) Chronic lymphocytic leukemia: (2) Urinary tract infection: Qualifiers: Hematuria presence: without hematuria Urinary tract infection type: a cute cystitis Qualified Code(s): N30.00 - Acute cystitis without hematuria (3) Alzheimer disease: (4) Dementia: (5) Altered mental status: (6) HTN (hypertension): (7) Diabetes: Plan #Altered mental status, secondary to UTI #History of CLL #UTI #Chronic congestive heart failure #Hypertension #Hyperlipidemia #Diabetes mellitus. ? UA positive for leukocyte esterase, 1+ bacteria, 55-80 WBCs. UTI may most likely be the cause of his altered mental status. -CT head negative for acute stroke or hemorrhage. ? Continue Rocephin ? Consult case management for placement ? Low-dose sliding scale ? Cardiac diet ? Continue amlodipine, lisinopril I do see a history of dementia and Alzheimer's dementia listed in patient's chart from prior resolved diagnosis. Will need to confirm with family if that is the case and need to call the previous retirement to assess patient's baseline mental status. No family present at bedside at this time. DVT prophylaxis: Heparin subcut bid Plan for today continue Rocephin, neurochecks, aspiration precautions Attestations 2 Medical Necessity Statement*: Patient requires hospitalization for acute encephalopathy, UTI Diagnoses Chronic lymphocytic leukemia C91.10 Urinary tract infection N30.00 Hematuria presence: without hematuria Urinary tract infection type: acute cystitis Alzheimer disease G30.9; F02.80 Dementia F03.90 Altered mental status R41.82 HTN (hypertension) I10 Diabetes E11.9
[2023-09-02 14:00] VITALS: BP 143/69; PULSE 72; RESP 18; TEMP 36.6
[2023-09-02 16:00] VITALS: BP 140/65; PULSE 67; RESP 14; TEMP 36.8; O2SAT 90
[2023-09-02 16:52] LABS: Glucose Point of Care 74 mg/dL (70-110)
[2023-09-02 19:32] VITALS: BP 155/73; PULSE 70; RESP 18; TEMP 36.8; O2SAT 93
[2023-09-02 20:41] LABS: Glucose Point of Care 100 mg/dL (70-110)
[2023-09-02] MEDS: cefTRIAXone 1,000 mg SDV 1000 MG IVP (22:50)
[2023-09-03] VITALS: BP 125/79; PULSE 64; RESP 18; TEMP 36.4; O2SAT 90
[2023-09-03 04:00] VITALS: BP 121/59; PULSE 67; RESP 18; TEMP 37.1; O2SAT 90
[2023-09-03] MEDS: sodium chloride 0.9% 1,000 ML 75 ML IV (05:30)
[2023-09-03] MEDS: amlodipine 10 mg Tablet PO (05:30)
[2023-09-03] MEDS: tamsulosin 0.4 mg Capsule PO (05:30)
[2023-09-03] MEDS: atorvastatin 40 mg Tablet PO (05:30)
[2023-09-03 05:52] LABS: Basophils % 0.1 %; Eosinophils # 0.1 10^3/uL (0.0-0.8); Eosinophils % 1.6 %; Hematocrit 34.3 % (37-53); Lymphocytes # 6.1 10^3/uL (0.8-4.8); Lymphocytes % 70.2 %; Mean Corpuscular HGB Conc 31.5 g/dL (30-55); Mean Corpuscular Hemoglobin 29.4 pg (27-33); Mean Corpuscular Volume 93.5 fl (82-101); Mean Platelet Volume 9.5 fL (7.4-10.4); Monocytes # 0.3 10^3/uL (0.2-0.9); Monocytes % 3.8 %; Neutrophils # 2.07 10^3/uL (1.8-7.7); Neutrophils % 23.7 %; Nucleated Red Blood Cells % 0 %; Platelet Count 335 10^3/cmm (157-399); Red Blood Count 3.67 10^6/uL (3.85-5.65); Red Cell Distribution Width 16.4 % (12.1-15.1); White Blood Count 8.73 10^3/uL (3.29-11.43)
[2023-09-03 06:23] LABS: Slide Review Slide Review Perform
[2023-09-03 06:37] LABS: Potassium 3.5 mmol/L (3.5-5.1); Sodium 139 mmol/L (136-145)
[2023-09-03 06:38] LABS: Alanine Aminotransferase 14 U/L (0-41); Anion Gap 15.5 (5-19); Aspartate Amino Transferase 13 U/L (0-40); Blood Urea Nitrogen 4 mg/dL (8-23); Calcium 7.9 mg/dL (8.5-10.5); Carbon Dioxide 24 mmol/L (22-29); Chloride 103 mmol/L (98-107); Creatinine Clr Calc Pharmacy 53.9254; Glucose 80 mg/dL (65-115); Osmolality Calculated 284 mOsm/kg (285-295); Total Bilirubin 0.3 mg/dL (0.15-1.2); Total Protein 5.8 g/dL (6.6-8.7)
[2023-09-03 06:39] LABS: Albumin Level 2.5 g/dL (3.5-5.2); Alkaline Phosphatase 92 U/L (40-130); Globulin 3.3 g/dL (1.3-4.6)
[2023-09-03 07:51] VITALS: BP 128/64; PULSE 68; RESP 17; TEMP 36.3; O2SAT 91
[2023-09-03] MEDS: metoprolol succinate ER (24 HR) 25 mg Tablet 12.5 MG PO (09:13)
[2023-09-03] MEDS: quetiapine 25 mg Tablet PO (09:14)
[2023-09-03] MEDS: amiodarone 200 mg Tablet PO ×2 (09:14→19:06)
[2023-09-03] MEDS: BuSPIRONE 10 mg Tablet PO (09:14)
--- NOTE | 2023-09-03 11:41 | PC.SOCIAL ---
IMM Updated Updated pt & family on IMM. No questions voiced. Provided pt a copy. Initialed, dated, & timed copy in chart.
[2023-09-03 11:54] VITALS: BP 104/54; PULSE 61; RESP 16; O2SAT 91
--- NOTE | 2023-09-03 14:56 | PC.OT ---
Pt seen for OT treatment session with pt sleeping soundly; will attempt again at a later time.
[2023-09-03 15:27] VITALS: BP 115/57; PULSE 65; RESP 16; TEMP 36.3; O2SAT 91
--- NOTE | 2023-09-03 16:05 | P.PN_ITS ---
Subjective 2 Subjective: Patient was seen this morning, he is able to follow commands, according to nursing staff he is able to ambulate, he is able to feed himself, but continues to have episodes of confusion, this morning he is alert to person, not to place, not to time, he thinks that he is at home, does not recognize me from yesterday, he has no complaints, no neck pain complaints, no back pain complaints, no abdominal pain, no facial droop no slurring of her words no focal weakness, he can follow commands such as smiling for me squeezing my fingers, he is able to ambulate, no neck pain, no neck stiffness Vitals/I&O/Wt Last Vital Signs Temp 97.4 F L 09/03/23 15:27 Pulse 65 09/03/23 15:27 Resp 16 09/03/23 15:27 BP 115/57 09/03/23 15:27 Pulse Ox 91 09/03/23 15:27 O2 Del Method Nasal Cannula 09/03/23 15:27 O2 Flow Rate 2 09/03/23 08:00 09/03/23 09/03/23 09/03/23 06:59 14:59 22:59 Intake Total 883.75 / 2963.75 240 / 240 Output Total 300 / 1100 950 / 950 Balance 583.75 / 1863.75 240 / 240 -950 / -710 Weight last 48 hrs Weight 60.01 kg Weight 60.951 kg Physical Exam 2 Const: COMMON NORMALS: no acute distress ORIENTATION/CONSCIOUSNESS: Yes awake and Yes oriented to person; not oriented to place and not oriented to time Resp: COMMON NORMALS: normal respiratory effort, No retractions, No use of accessory muscles and clear to auscultation bilaterally AUSCULTATION: clear to auscultation bilaterally Cardio: COMMON NORMALS: regular rate, regular rhythm, S1 normal heart sound present and S2 normal heart sound present RATE: regular rate RHYTHM: r egular rhythm HEART SOUNDS: S1 normal heart sound present and S2 normal heart sound present GI: COMMON NORMALS: Normal to inspection, nondistended, normoactive bowel sounds present and non-tender Extremity: COMMON NORMALS: no pedal edema Neuro: SENSORIUM/ORIENTATION: Yes oriented to person, No oriented to place and No oriented to time Urinary Catheter Management: Wan: Cath Placed During This Visit: yes Reason for Continuing Indwelling Catheter: Acute Urinary Retention or Obstruction Urinary Catheter Date of Insertion: 08/31/23 Urinary Catheter Time of Insertion: 14:04 Data 09/03/23 05:09 09/03/23 05:09 Micro: Microbiology 08/30/23 22:08 Urine Culture - Preliminary Urine,Clean Catch Strep species, gamma-hemolytic A&P Assessment and plan (1) Chronic lymphocytic leukemia: (2) Urinary tract infection: Qualifiers: Hematuria presence: without hematuria Urinary tract infection type: a cute cystitis Qualified Code(s): N30.00 - Acute cystitis without hematuria (3) Alzheimer disease: (4) Dementia: (5) Altered mental status: (6) HTN (hypertension): (7) Diabetes: Plan #Altered mental status, secondary to UTI #History of CLL #UTI #Chronic congestive heart failure #Hypertension #Hyperlipidemia #Diabetes mellitus. -Continues to have episodes of confusion, suspect that patient has dementia, with worsening of dementia symptoms while he is here in the hospital ? UA positive for leukocyte esterase, 1+ bacteria, 55-80 WBCs. UTI may most likely be the cause of his altered mental status. -CT head negative for acute stroke or hemorrhage. ? Continue Rocephin ? Consult case management for placement ? Low-dose sliding scale ? Cardiac diet ? Continue amlodipine, lisinopril I do see a history of dementia and Alzheimer's dementia listed in patient's chart from prior resolved diagnosis. Will need to confirm with family if that is the case and need to call the previous residential to assess patient's baseline mental status. No family present at bedside at this time. DVT prophylaxis: Heparin subcut bid Plan for today continue Rocephin, neurochecks, aspiration precautions Attestations 2 Medical Necessity Statement*: Patient requires hospitalization for acute encephalopathy Diagnoses Chronic lymphocytic leukemia C91.10 Urinary tract infection N30.00 Hematuria presence: without hematuria Urinary tract infection type: acute cystitis Alzheimer disease G30.9; F02.80 Dementia F03.90 Altered mental status R41.82 HTN (hypertension) I10 Diabetes E11.9
[2023-09-03 19:45] VITALS: BP 160/65; PULSE 60; RESP 17; TEMP 36.6; O2SAT 94
[2023-09-03] MEDS: cefTRIAXone 1,000 mg SDV 1000 MG IVP (22:48)
[2023-09-03] MEDS: water for injection-sterile 10 ML (22:48)
[2023-09-03] MEDS: heparin 5,000 unit/mL INJ 1 mL 5000 UNIT SUBCUT (22:49)
[2023-09-04] VITALS (7 sets, daily range): BP systolic 93–184; BP diastolic 55–76; PULSE 56–68; RESP 15–18; TEMP 36.3–37; O2SAT 92–99
[2023-09-04] MEDS: amlodipine 10 mg Tablet PO (05:48)
[2023-09-04] MEDS: atorvastatin 40 mg Tablet PO (05:48)
[2023-09-04] MEDS: tamsulosin 0.4 mg Capsule PO (05:48)
[2023-09-04] MEDS: amiodarone 200 mg Tablet PO ×2 (08:02→17:36)
[2023-09-04] MEDS: BuSPIRONE 10 mg Tablet PO (08:02)
[2023-09-04] MEDS: quetiapine 25 mg Tablet PO (08:02)
[2023-09-04] MEDS: metoprolol succinate ER (24 HR) 25 mg Tablet 12.5 MG PO (08:02)
[2023-09-04] MEDS: heparin 5,000 unit/mL INJ 1 mL 5000 UNIT SUBCUT ×2 (11:47→23:06)
--- NOTE | 2023-09-04 14:29 | P.PN_ITS ---
Subjective 2 Subjective: Patient was seen this morning, alert to person, not to place, not to time he follows all commands, has no complaints Vitals/I&O/Wt Last Vital Signs Temp 98.6 F 09/04/23 07:34 Pulse 56 L 09/04/23 11:48 Resp 16 09/04/23 11:48 BP 93/55 09/04/23 11:48 Pulse Ox 94 09/04/23 11:48 O2 Del Method Nasal Cannula 09/04/23 11:48 O2 Flow Rate 3 09/04/23 11:48 09/03/23 09/04/23 09/04/23 22:59 06:59 14:59 Intake Total 1115 / 1355 10.0 / 1365.0 240 / 240 Output Total 1225 / 1225 200 / 1425 Balance -110 / 130 -190.0 / -60.0 240 / 240 Weight last 48 hrs Weight 60.01 kg Weight 60.01 kg Physical Exam 2 Const: COMMON NORMALS: no acute distress Resp: COMMON NORMALS: normal respiratory effort, No retractions, No use of accessory muscles and clear to auscultation bilaterally AUSCULTATION: clear to auscultation bilaterally Cardio: COMMON NORMALS: regular rate, regular rhythm, S1 normal heart sound present and S2 normal heart sound present RATE: regular rate RHYTHM: r egular rhythm HEART SOUNDS: S1 normal heart sound present and S2 normal heart sound present GI: COMMON NORMALS: Normal to inspection, nondistended, normoactive bowel sounds present and non-tender Extremity: COMMON NORMALS: no pedal edema Urinary Catheter Management: Wan: Cath Placed During This Visit: yes Reason for Continuing Indwelling Catheter: Other Urinary Catheter Date of Insertion: 08/31/23 Urinary Catheter Time of Insertion: 14:04 Data 09/03/23 05:09 09/03/23 05:09 Micro: Microbiology 08/30/23 22:08 Urine Culture - Preliminary Urine,Clean Catch Strep species, gamma-hemolytic A&P Assessment and plan (1) Chronic lymphocytic leukemia: (2) Urinary tract infection: Qualifiers: Hematuria presence: without hematuria Urinary tract infection type: a cute cystitis Qualified Code(s): N30.00 - Acute cystitis without hematuria (3) Alzheimer disease: (4) Dementia: (5) Altered mental status: (6) HTN (hypertension): (7) Diabetes: Plan #Altered mental status, secondary to UTI, 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 -Continues to have episodes of confusion CT of the head shows frontotemporal predominant cerebral atrophy, highly suspicious for frontotemporal dementia, given his persistent confusion, which would likely continue to be worse here in the hospital, will need to follow-up with neurology as outpatient ? UA positive for leukocyte esterase, 1+ bacteria, 55-80 WBCs. UTI may most likely be the cause of his altered mental status., Currently on day 4 of Rocephin -CT head negative for acute stroke or hemorrhage. ? Continue Rocephin ? Consult case management for placement ? Low-dose sliding scale ? Cardiac diet ? Continue amlodipine, lisinopril DVT prophylaxis: Heparin subcut bid Plan for today continue Rocephin, neurochecks, aspiration precautions Attestations 2 Medical Necessity Statement*: Patient requires hospitalization for altered mental status, Diagnoses Chronic lymphocytic leukemia C91.10 Urinary tract infection N30.00 Hematuria presence: without hematuria Urinary tract infection type: acute cystitis Alzheimer disease G30.9; F02.80 Dementia F03.90 Altered mental status R41.82 HTN (hypertension) I10 Diabetes E11.9
--- NOTE | 2023-09-04 16:22 | PC.NURSE ---
This nurse entered room noted lind bag on side table with bloody urine in bag. Blood noted at tip of penis and on gown. Replace stat lock, cleaned pt and placed new gown on him. Reeducated pt not to pull on catheter.
[2023-09-04] MEDS: cefTRIAXone 1,000 mg SDV 1000 MG IVP (23:07)
[2023-09-04] MEDS: water for injection-sterile 10 ML (23:07)
[2023-09-05 04:00] VITALS: BP 132/67; PULSE 57; RESP 16; TEMP 36.6; O2SAT 95
[2023-09-05] MEDS: tamsulosin 0.4 mg Capsule PO (05:55)
[2023-09-05] MEDS: atorvastatin 40 mg Tablet PO (05:55)
[2023-09-05] MEDS: amlodipine 10 mg Tablet PO (05:55)
[2023-09-05 07:33] VITALS: BP 124/61; PULSE 58; RESP 17; TEMP 36.7; O2SAT 95
[2023-09-05] MEDS: quetiapine 25 mg Tablet PO (08:05)
[2023-09-05] MEDS: BuSPIRONE 10 mg Tablet PO (08:05)
[2023-09-05] MEDS: metoprolol succinate ER (24 HR) 25 mg Tablet 12.5 MG PO (08:05)
[2023-09-05] MEDS: heparin 5,000 unit/mL INJ 1 mL 5000 UNIT SUBCUT ×2 (10:45→22:49)
[2023-09-05 11:56] VITALS: BP 107/55; PULSE 55; RESP 17; TEMP 36.7; O2SAT 97
[2023-09-05] MEDS: insulin lispro 100 unit/1 mL SUBCUT (13:13)
--- NOTE | 2023-09-05 13:43 | P.PN_ITS ---
Subjective 2 Subjective: Patient was seen this morning, he is alert to person, to place, not to time, remains quite confused, he can follow all commands no facial droop no slurring of words no focal weakness, afebrile overnight, normotensive Vitals/I&O/Wt Last Vital Signs Temp 98.0 F 09/05/23 11:56 Pulse 55 L 09/05/23 11:56 Resp 17 09/05/23 11:56 BP 107/55 09/05/23 11:56 Pulse Ox 97 09/05/23 11:56 O2 Del Method Nasal Cannula 09/05/23 11:56 O2 Flow Rate 2 09/05/23 08:00 09/04/23 09/05/23 09/05/23 22:59 06:59 14:59 Intake Total 100 / 400 10 / 410 240 / 240 Output Total 300 / 300 0 / 300 Balance -200 / 100 10 / 110 240 / 240 Weight last 48 hrs Weight 59.874 kg Weight 60.01 kg Physical Exam 2 Const: COMMON NORMALS: no acute distress ORIENTATION/CONSCIOUSNESS: Yes awake and Yes oriented to person Resp: COMMON NORMALS: normal respiratory effort, No retractions, No use of accessory muscles and clear to auscultation bilaterally AUSCULTATION: clear to auscultation bilaterally Cardio: COMMON NORMALS: regular rate, regular rhythm, S1 normal heart sound present and S2 normal heart sound present RATE: regular rate RHYTHM: r egular rhythm HEART SOUNDS: S1 normal heart sound present and S2 normal heart sound present GI: COMMON NORMALS: Normal to inspection, nondistended, normoactive bowel sounds present and non-tender Extremity: COMMON NORMALS: no pedal edema Neuro: SENSORIUM/ORIENTATION: Yes oriented to person Psych: COMMON NORMALS: mental status grossly normal Urinary Catheter Management: Wan: Cath Placed During This Visit: yes Reason for Continuing Indwelling Catheter: Acute Urinary Retention or Obstruction Urinary Catheter Date of Insertion: 08/31/23 Urinary Catheter Time of Insertion: 14:04 Data 09/03/23 05:09 09/03/23 05:09 Micro: Microbiology 08/30/23 22:08 Urine Culture - Final Urine,Clean Catch Enterococcus faecalis 08/31/23 04:12 Blood Culture - Final Blood NO GROWTH AFTER 5 DAYS 08/31/23 01:19 Blood Culture - Final Blood NO GROWTH AFTER 5 DAYS A&P Assessment and plan (1) Chronic lymphocytic leukemia: (2) Urinary tract infection: Qualifiers: Hematuria presence: without hematuria Urinary tract infection type: a cute cystitis Qualified Code(s): N30.00 - Acute cystitis without hematuria (3) Alzheimer disease: (4) Dementia: (5) Altered mental status: (6) HTN (hypertension): (7) Diabetes: Plan #Altered mental status, secondary to UTI, 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 -Continues to have episodes of confusion CT of the head shows frontotemporal predominant cerebral atrophy, highly suspicious for frontotemporal dementia, given his persistent confusion, which would likely continue to be worse here in the hospital, will need to follow-up with neurology as outpatient ? UA positive for leukocyte esterase, 1+ bacteria, 55-80 WBCs. UTI may most likely be the cause of his altered mental status., Urine culture showing Enterococcus faecalis, switch to p.o. ciprofloxacin -CT head negative for acute stroke or hemorrhage. ? Switch to p.o. ciprofloxacin ? Consult case management for placement ? Low-dose sliding scale ? Cardiac diet ? Continue amlodipine, lisinopril DVT prophylaxis: Heparin subcut bid Plan for today continue Rocephin, neurochecks, aspiration precautions Attestations 2 Medical Necessity Statement*: Patient requires hospitalization for altered mental status Diagnoses Chronic lymphocytic leukemia C91.10 Urinary tract infection N30.00 Hematuria presence: without hematuria Urinary tract infection type: acute cystitis Alzheimer disease G30.9; F02.80 Dementia F03.90 Altered mental status R41.82 HTN (hypertension) I10 Diabetes E11.9
[2023-09-05 16:00] VITALS: BP 131/50; PULSE 53; RESP 18; TEMP 36.4; O2SAT 97
[2023-09-05 20:00] VITALS: BP 120/62; PULSE 55; RESP 17; TEMP 36.6; O2SAT 95
[2023-09-05] MEDS: ciprofloxacin 500 mg Tablet PO (20:30)
[2023-09-06] VITALS: BP 135/65; PULSE 54; RESP 16; TEMP 36.6; O2SAT 95
[2023-09-06 04:00] VITALS: BP 129/61; PULSE 55; RESP 16; TEMP 36.5; O2SAT 95
[2023-09-06] MEDS: tamsulosin 0.4 mg Capsule PO (05:59)
[2023-09-06] MEDS: amlodipine 10 mg Tablet PO (05:59)
[2023-09-06] MEDS: atorvastatin 40 mg Tablet PO (05:59)
[2023-09-06 07:05] LABS: Glucose Point of Care 80 mg/dL (70-110)
[2023-09-06 07:32] LABS: Glucose Point of Care 116 mg/dL (70-110)
[2023-09-06 07:32] LABS: Glucose Point of Care 103 mg/dL (70-110)
[2023-09-06 07:32] LABS: Glucose Point of Care 165 mg/dL (70-110)
[2023-09-06 07:32] LABS: Glucose Point of Care 108 mg/dL (70-110)
[2023-09-06 07:33] LABS: Glucose Point of Care 85 mg/dL (70-110)
[2023-09-06 07:33] LABS: Glucose Point of Care 72 mg/dL (70-110)
[2023-09-06 07:33] LABS: Glucose Point of Care 93 mg/dL (70-110)
[2023-09-06 07:33] LABS: Glucose Point of Care 148 mg/dL (70-110)
[2023-09-06 07:40] LABS: Glucose Point of Care 121 mg/dL (70-110)
[2023-09-06 07:40] LABS: Glucose Point of Care 108 mg/dL (70-110)
[2023-09-06 08:00] VITALS: BP 117/59; PULSE 64; RESP 17; TEMP 36.6; O2SAT 98
[2023-09-06] MEDS: BuSPIRONE 10 mg Tablet PO (08:56)
[2023-09-06] MEDS: quetiapine 25 mg Tablet PO (08:56)
[2023-09-06] MEDS: amiodarone 200 mg Tablet PO (08:56)
[2023-09-06] MEDS: metoprolol succinate ER (24 HR) 25 mg Tablet 12.5 MG PO (08:56)
[2023-09-06] MEDS: ciprofloxacin 500 mg Tablet PO ×2 (08:56→20:25)
--- NOTE | 2023-09-06 09:58 | PC.SOCIAL ---
IMM Update pg 2 of IMM updated and reviewed w/ patients daughter. Copy provided and copy dated, initialed and placed in chart.
[2023-09-06 12:00] VITALS: BP 162/68; PULSE 57; RESP 18; TEMP 36.7; O2SAT 100
[2023-09-06] MEDS: heparin 5,000 unit/mL INJ 1 mL 5000 UNIT SUBCUT ×2 (12:00→20:25)
--- NOTE | 2023-09-06 14:17 | P.PN_ITS ---
Subjective 2 Subjective: patient was seen this morning, lind catheter in place, nursing staff reports he is pulling on lind catheter, will remove, he is alert to person, not to place, not to time Vitals/I&O/Wt Last Vital Signs Temp 98.1 F 09/06/23 12:00 Pulse 57 L 09/06/23 12:00 Resp 18 09/06/23 12:00 BP 162/68 09/06/23 12:00 Pulse Ox 100 09/06/23 12:00 O2 Del Method Nasal Cannula 09/06/23 12:00 O2 Flow Rate 2 09/06/23 08:00 09/05/23 09/06/23 09/06/23 22:59 06:59 14:59 Intake Total 120 / 360 120 / 480 480 / 480 Output Total 50 / 50 650 / 650 Balance 70 / 310 120 / 430 -170 / -170 Weight last 48 hrs Weight 59.602 kg Weight 59.874 kg Physical Exam 2 Const: COMMON NORMALS: no acute distress Resp: COMMON NORMALS: normal respiratory effort, No retractions, No use of accessory muscles and clear to auscultation bilaterally AUSCULTATION: clear to auscultation bilaterally Cardio: COMMON NORMALS: regular rate, regular rhythm, S1 normal heart sound present and S2 normal heart sound present RATE: regular rate RHYTHM: r egular rhythm HEART SOUNDS: S1 normal heart sound present and S2 normal heart sound present GI: COMMON NORMALS: Normal to inspection, nondistended, normoactive bowel sounds present and non-tender Extremity: COMMON NORMALS: no pedal edema Urinary Catheter Management: Lind: Cath Placed During This Visit: yes Reason for Continuing Indwelling Catheter: Other Urinary Catheter Date of Insertion: 08/31/23 Urinary Catheter Time of Insertion: 14:04 Data 09/03/23 05:09 09/03/23 05:09 Micro: Microbiology 08/30/23 22:08 Urine Culture - Final Urine,Clean Catch Enterococcus faecalis A&P Assessment and plan (1) Chronic lymphocytic leukemia: (2) Urinary tract infection: Qualifiers: Hematuria presence: without hematuria Urinary tract infection type: a cute cystitis Qualified Code(s): N30.00 - Acute cystitis without hematuria (3) Alzheimer disease: (4) Dementia: (5) Altered mental status: (6) HTN (hypertension): (7) Diabetes: Plan #Altered mental status, secondary to UTI, 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 -Continues to have episodes of confusion CT of the head shows frontotemporal predominant cerebral atrophy, highly suspicious for frontotemporal dementia, given his persistent confusion, which would likely continue to be worse here in the hospital, will need to follow-up with neurology as outpatient ? UA positive for leukocyte esterase, 1+ bacteria, 55-80 WBCs. UTI may most likely be the cause of his altered mental status., Urine culture showing Enterococcus faecalis, switch to p.o. ciprofloxacin -CT head negative for acute stroke or hemorrhage. ? Switch to p.o. ciprofloxacin ? Consult case management for placement ? Low-dose sliding scale ? Cardiac diet ? Continue amlodipine, lisinopril DVT prophylaxis: Heparin subcut bid Plan for today neurochecks, aspiration precautions Attestations 2 Medical Necessity Statement*: Patient requires hospitalization for UTI, altered mental status Coding Level of Care Code Acute Code for [facility] Fwd Diagnoses Chronic lymphocytic leukemia C91.10 Urinary tract infection N30.00 Hematuria presence: without hematuria Urinary tract infection type: acute cystitis Alzheimer disease G30.9; F02.80 Dementia F03.90 Altered mental status R41.82 HTN (hypertension) I10 Diabetes E11.9
[2023-09-06 16:00] VITALS: BP 133/63; PULSE 54; RESP 16; TEMP 36.6; O2SAT 93
[2023-09-06] MEDS: insulin lispro 100 unit/1 mL SUBCUT (17:47)
[2023-09-06 20:00] VITALS: BP 134/58; PULSE 61; RESP 18; TEMP 36.6; O2SAT 90
--- NOTE | 2023-09-06 21:45 | PC.NURSE ---
Patient's POC Glucose currently 103.
--- NOTE | 2023-09-06 21:46 | PC.NURSE ---
Patient AMS and continually takes nasal cannula off. Oxygen saturation currently 89 percent on room air.
[2023-09-06 22:14] LABS: Glucose Point of Care 164 mg/dL (70-110)
[2023-09-06 22:14] LABS: Glucose Point of Care 103 mg/dL (70-110)
[2023-09-06 22:14] LABS: Glucose Point of Care 116 mg/dL (70-110)
[2023-09-07] VITALS: BP 131/62; PULSE 59; RESP 17; TEMP 36.8; O2SAT 92
--- NOTE | 2023-09-07 00:11 | PC.NURSE ---
When turning patient on his side during shift assessment to assess sacral wound, patient became agitated and stated nura, don't do that. Unable to place optifoam on sacrum as patient was pushing against bed rail, trying to lay back on his back. Patient has otherwise been pleasant and cooperative.
[2023-09-07 04:00] VITALS: BP 112/65; PULSE 58; RESP 18; TEMP 36.6; O2SAT 90
--- NOTE | 2023-09-07 04:11 | PC.NURSE ---
Addendum entered by Viridiana Natarajan RN 09/07/23 04:13: Dr. Grant also notified of bladder scan showed 640 ml. Original Note: Patient has not had any urine output throughout shift. Patient had drops of blood on brief from penis. Patient unable to comprehend any instruction, so we told to try to pee, he beings to talk about something completely different. A urinal was held and pressure placed on patient's bladder with nurse's hand. Patient did not void. Dr. Grant notified that he day shift nurse reported that the blood from the patient's penis was due to him pulling at the lind when he had one yesterday.. Straight cath x1 ordered.
[2023-09-07] MEDS: atorvastatin 40 mg Tablet PO (04:57)
[2023-09-07] MEDS: tamsulosin 0.4 mg Capsule PO (04:58)
[2023-09-07] MEDS: amlodipine 10 mg Tablet PO (04:58)
[2023-09-07 06:34] LABS: Glucose Point of Care 93 mg/dL (70-110)
[2023-09-07 07:23] VITALS: BP 130/59; PULSE 58; RESP 17; TEMP 36.5; O2SAT 92
[2023-09-07] MEDS: amiodarone 200 mg Tablet PO (08:38)
[2023-09-07] MEDS: quetiapine 25 mg Tablet PO (08:38)
[2023-09-07] MEDS: ciprofloxacin 500 mg Tablet PO (08:38)
[2023-09-07] MEDS: BuSPIRONE 10 mg Tablet PO (08:38)
[2023-09-07 11:13] VITALS: BP 117/67; PULSE 51; RESP 17; TEMP 36.4; O2SAT 94
[2023-09-07 11:31] LABS: Glucose Point of Care 126 mg/dL (70-110)
[2023-09-07] MEDS: heparin 5,000 unit/mL INJ 1 mL 5000 UNIT SUBCUT (11:47)
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
--- NOTE | 2023-09-07 12:10 | PC.NURSE ---
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
[2023-09-07 12:34] LABS: SARS Covid-2 Antigen negative (Negative)
--- NOTE | 2023-09-07 13:08 | PC.NURSE ---
This nurse called report to Raine at [facility] at 1307. [facility] to arrive at 1330 to transport pt to facility.
== END 2023-09-07 13:55 | disposition skilled nursing facility (03) | DRG 690 ==
LOC: ER 23:13 → ER IP 08-31 00:39 → MEDSURG 08-31 18:56 → ER IP 09-01 10:45
PROVIDERS: Admitting Provider Internal Medicine; Emergency Provider Emergency Medicine; PCP Family Medicine; Visit Provider Family Medicine
DX: N30.00 Acute cystitis without hematuria (principal); G93.40 Encephalopathy, unspecified; C91.10 Chronic lymphocytic leukemia of B-cell type not having achieved remission; B95.2 Enterococcus as the cause of diseases classified elsewhere; I25.2 Old myocardial infarction; I11.0 Hypertensive heart disease with heart failure; I50.9 Heart failure, unspecified; E78.00 Pure hypercholesterolemia, unspecified; E11.9 Type 2 diabetes mellitus without complications; Z87.891 Personal history of nicotine dependence; L89.152 Pressure ulcer of sacral region, stage 2; G30.9 Alzheimer's disease, unspecified; F02.80 Dementia in other diseases classified elsewhere, unspecified severity, without behavioral disturbance, psychotic disturbance, mood disturbance, and anxiety; G31.09 Other frontotemporal neurocognitive disorder
CPT/HCPCS: 36415; 36416; 51702; 51798; 70450; 71045; 74176; 80048; 80053; 81001; 82140; 82962; 83735; 84145; 84443; 85025; 87040; 87077; 87086; 87186; 87426; 93005; 96372; 97116; 97162; 97167; 97530; 97535; J0696; J1644; J1815; J7030